=== PATIENT | female | born 1940 | race Caucasian/White ===

== ENCOUNTER 2016-08-08 08:20 | Emergency (ER) | payer MEDICARE, MEDICAID ==
[2016-08-08] MEDS ORDERED: ACETAMINOPHEN 325 MG TABLET PO ONE (09:03)
--- NOTE | 2016-08-08 09:06 | ER Document Report ---
ED Flu Like - General Mode of Arrival: Ambulatory Information source: Patient TRAVEL OUTSIDE OF THE [place] IN LAST 30 DAYS: No - HPI Patient complains to provider of: Flu Symptoms Onset: This morning Timing/Duration: Sudden Associated symptoms: Chills, Productive cough, Fever, Rhinnorhea <CINDY CORRAL - Last Filed: 08/08/16 09:22> <SÁNCHEZ RICHTER - Last Filed: 08/08/16 10:34> - General Chief Complaint: Flu Symptoms Stated Complaint: HEAD PAIN Notes: Patient is a 75-year-old female presenting to the emergency department concerned of flulike symptoms onset upon waking up this morning. Patient states that she has a productive cough, but she does not know what it looks like. Patient also complains of being cold and not being able to warm up. Patient cannot remember if she got the flu shot or not, but states that she has been around her brother and his 2 sons who have been sick. Patient believes that she woke up with fever, but did not check her temp until here in the ER. (CINDY CORRAL) - Related Data Allergies/Adverse Reactions: propoxyphene HCl [From Darvon] Adverse Reaction (Verified 08/08/16 08:24) Confusion Bee Stings Allergy (Uncoded 08/08/16 08:24) Past Medical History - General Information source: Patient - Social History Smoking Status: Never Smoker Chew tobacco use (# tins/day): No Frequency of alcohol use: None Drug Abuse: None Family History: None, Reviewed & Not Pertinent Patient has suicidal ideation: No Patient has homicidal ideation: No - Past Medical History Cardiac Medical History: Reports: Hx Hypercholesterolemia, Hx Hypertension Pulmonary Medical History: Reports: Hx Pneumonia Renal/ Medical History: Reports: Hx Kidney Stones - Seen on CT scan in the past GI Medical History: Reports: Hx Gastroesophageal Reflux Disease, Hx Hiatal Hernia Musculoskeltal Medical History: Reports Hx Arthritis - all over Psychiatric Medical History: Reports: Hx Depression Past Surgical History: Reports: Hx Bowel Surgery - A gastric stent to repair hiatal hernia, Hx Gynecologic Surgery - BTL, Hx Tubal Ligation - Immunizations Hx Diphtheria, Pertussis, Tetanus Vaccination: Yes Hx Pneumococcal Vaccination: 01/31/15 <CINDY CORRAL - Last Filed: 08/08/16 09:22> Review of Systems - Review of Systems Constitutional: See HPI, Chills, Fever EENT: See HPI, Nose congestion Cardiovascular: No symptoms reported Respiratory: See HPI, Cough - Productive Gastrointestinal: No symptoms reported Genitourinary: No symptoms reported Female Genitourinary: No symptoms reported Musculoskeletal: No symptoms reported Skin: No symptoms reported Hematologic/Lymphatic: No symptoms reported Neurological/Psychological: No symptoms reported -: Yes All other systems reviewed and negative <CINDY CORRAL - Last Filed: 08/08/16 09:22> Physical Exam - Vital signs Interpretation: Hypertensive, Tachycardic, Tachypneic - General General appearance: Alert - HEENT Head: Normocephalic, Atraumatic Eyes: Normal Pupils: PERRL Tympanic membrane: Normal Nasal: Clear rhinorrhea Mouth/Lips: Normal - Respiratory Respiratory status: No respiratory distress, Tachypnea Chest status: Nontender Breath sounds: Productive cough, Rhonchi. No: Wheezing - Cardiovascular Rhythm: Tachycardia Heart sounds: Normal auscultation Murmur: No - Abdominal Inspection: Normal Distension: No distension Bowel sounds: Normal Tenderness: Nontender Organomegaly: No organomegaly - Back Back: Normal, Nontender - Extremities General upper extremity: Normal inspection, Nontender, Normal color, Normal ROM , Normal temperature General lower extremity: Normal inspection, Nontender, Normal color, Normal ROM , Normal temperature, Normal weight bearing - Neurological Neuro grossly intact: Yes Cognition: Normal [place] Coma Scale Eye Opening: Spontaneous Yadi Coma Scale Verbal: Oriented [place] Coma Scale Motor: Obeys Commands Yadi Coma Scale Total: 15 Speech: Normal - Psychological Associated symptoms: Normal affect, Normal mood - Skin Skin Temperature: Warm Skin Moisture: Dry Skin Color: Normal <CINDY CORRAL - Last Filed: 08/08/16 09:22> Course - Laboratory Result Diagrams: 08/08/16 09:50 08/08/16 09:50 - Diagnostic Test Radiology reviewed: Image reviewed, Reports reviewed - Chest x-ray does not show an acute process. <SÁNCHEZ RICHTER - Last Filed: 08/08/16 10:34> - Vital Signs Vital signs: Temp Pulse Resp BP Pulse Ox 98.6 F 89 24 H 121/59 L 97 08/08/16 09:59 08/08/16 09:59 08/08/16 08:28 08/08/16 09:59 08/08/16 08:28 (CINDY CORRAL) (SÁNCHEZ RICHTER) - Laboratory Laboratory results interpreted by me: 08/08/16 09:50 Seg Neutrophils % 81.6 H Lymphocytes % 7.4 L Absolute Lymphocytes 0.4 L Discharge <CINDY CORRAL - Last Filed: 08/08/16 09:22> <SÁNCHEZ RICHTER - Last Filed: 08/08/16 10:34> - Discharge Clinical Impression: Viral upper respiratory tract infection with cough, Viral syndrome Condition: Stable Disposition: HOME, SELF-CARE Additional Instructions: Upper Respiratory Illness: You have a viral infection of the respiratory passages -- a "cold." This common infection causes nasal congestion, drainage, and often sore throat and cough. It is caused by a virus and is highly contagious. The disease usually lasts a week or more, though the worst symptoms are usually over in 3 or 4 days. There is no "cure" for the viral infection -- it must run its course. If there is a complication, such as bacterial infection in the nose, sinuses, middle ear, or bronchial tubes, antibiotics may be required, but antibiotics won 't affect the virus. If you smoke, you should STOP!! Drink plenty of fluids. A humidifier may help. An expectorant medication or decongestant may make you more comfortable. Use acetaminophen or ibuprofen for fever or aches. See the doctor if fever persists over two or three days, if there is any significant worsening of your symptoms, or if you simply fail to improve as expected. Viral Syndrome: The physician has diagnosed a viral infection. Viruses not only cause "colds," but can cause many different symptoms including generalized aching, fever, headache, cough, diarrhea, nausea, vomiting, and fatigue. The treatment, for the most part, is simply relief of symptoms. This means that antibiotics are usually not given. Rest, fluids, pain medications and, occasionally, medication for the specific symptoms that are most bothersome will be prescribed. Use good handwashing to avoid passing the virus to others. Shared toys should be cleaned with disinfectant. Clean the toilets, sinks, and counter surfaces in bathrooms. Launder clothing in hot water. Contact the physician if you develop any new or unusual symptoms such as severe headache, stiff neck, high fever, chest pain, productive cough, or shortness of breath. You should be rechecked if you don't see marked improvement within seven to 10 days. DRINK PLENTY OF FLUIDS. REST. TRY ROBITUSSIN-DM FOR COUGH CONTROL. TAKE TYLENOL AND IBUPROFEN FOR CHILLS, FEVER, AND PAIN. FOLLOW UP WITH YOUR DOCTOR IF NOT IMPROVING. Forms: Return to Work Scribe Attestation: 08/08/16 10:34 I personally performed the services described in the documentation, reviewed and edited the documentation which was dictated to the scribe in my presence, and it accurately records my words and actions. (SÁNCHEZ RICHTER) Scribe Documentation <CINDY CORRAL - Last Filed: 08/08/16 09:22> <SÁNCHEZ RICHTER - Last Filed: 08/08/16 10:34> - Scribe Written by Scribe:: SÁNCHEZ RICHTER MD, SCRIBE 08/08/16 0917 Acting as scribe for: Dr. Richter (CINDY CORRAL) (SÁNCHEZ RICHTER)
[2016-08-08 10:16] LABS: ABSOLUTE LYMPHOCYTES (AUTO) 0.4 10^3/uL (0.5-4.7); ABSOLUTE MONOCYTES (AUTO) 0.6 10^3/uL (0.1-1.4); ABSOLUTE NEUT (AUTO) 4.8 10^3/uL (1.7-8.2); BASOPHILS % (AUTO) 0.3 % (0-2); EOSINOPHILS % (AUTO) 0.3 % (0-6); HEMATOCRIT 36.3 % (36.0-47.0); HEMOGLOBIN 12.6 g/dL (12.0-15.5); HGB HCT DIFFERENCE 1.5; LYMPHOCYTES % (AUTO) 7.4 % (13-45); MEAN CORPUSCULAR HEMOGLOBIN 31.6 pg (27.0-33.4); MEAN CORPUSCULAR HGB CONC 34.6 g/dL (32.0-36.0); MEAN CORPUSCULAR VOLUME 91 fl (80-97); MONOCYTES % (AUTO) 10.4 % (3-13); RED BLOOD COUNT 3.98 10^6/uL (3.72-5.28); RED CELL DISTRIBUTION WIDTH 13.5 % (11.5-14.0); SEGMENTED NEUTROPHILS % (AUTO) 81.6 % (42-78); WHITE BLOOD COUNT 5.9 10^3/uL (4.0-10.5)
[2016-08-08 10:34] LABS: ALANINE AMINOTRANSFERASE 23 U/L (9-52); ALBUMIN 4.2 g/dL (3.5-5.0); ALKALINE PHOSPHATASE 62 U/L (38-126); ANION GAP 12 (5-19); ASPARTATE AMINO TRANSFERASE 18 U/L (14-36); BILIRUBIN,TOTAL 0.7 mg/dL (0.2-1.3); BLOOD UREA NITROGEN 12 mg/dL (7-20); CALCIUM 9.2 mg/dL (8.4-10.2); CARBON DIOXIDE 23 mmol/L (22-30); CHLORIDE 105 mmol/L (98-107); CREATININE RESULT 0.61 mg/dL (0.52-1.25); GLUCOSE 118 mg/dL (75-110); POTASSIUM 3.9 mmol/L (3.6-5.0); TOTAL PROTEIN 6.3 g/dL (6.3-8.2)
[2016-08-08 10:45] VITALS: BP 120/61
== END 2016-08-08 10:44 | disposition home or self-care (01) ==
LOC: ER 08:20
DX: J06.9 Acute upper respiratory infection, unspecified (principal); B34.9 Viral infection, unspecified; R51 Headache; R05 Cough
CPT/HCPCS: 99283; 36415; 85025; 80053; 87804; 71020; A9270

== ENCOUNTER → 2016-08-14 | Outpatient (CLI) | payer MEDICARE, MEDICAID | LOC: RAD 16:27 | PROVIDERS: ATTEND Family Medicine | DX: R05 Cough (principal) | CPT/HCPCS: 71020 ==

== ENCOUNTER 2016-10-12 15:33 | Emergency (ER) | payer MEDICARE, MEDICAID ==
--- NOTE | 2016-10-12 16:03 | EKG REPORT ---
SEVERITY:- NORMAL ECG - SINUS RHYTHM : Confirmed by: Angelica Burgos MD 12-Oct-2016 16:02:28
[2016-10-12 16:14] LABS: ABSOLUTE EOSINOPHILS # (AUTO) 0.2 10^3/uL (0.0-0.6); ABSOLUTE LYMPHOCYTES (AUTO) 2.1 10^3/uL (0.5-4.7); ABSOLUTE MONOCYTES (AUTO) 0.5 10^3/uL (0.1-1.4); ABSOLUTE NEUT (AUTO) 4.1 10^3/uL (1.7-8.2); BASOPHILS % (AUTO) 0.6 % (0-2); EOSINOPHILS % (AUTO) 2.3 % (0-6); HEMATOCRIT 39.4 % (36.0-47.0); HEMOGLOBIN 13.6 g/dL (12.0-15.5); HGB HCT DIFFERENCE 1.4; LYMPHOCYTES % (AUTO) 30.2 % (13-45); MEAN CORPUSCULAR HEMOGLOBIN 32.1 pg (27.0-33.4); MEAN CORPUSCULAR HGB CONC 34.5 g/dL (32.0-36.0); MEAN CORPUSCULAR VOLUME 93 fl (80-97); MONOCYTES % (AUTO) 7.5 % (3-13); RED BLOOD COUNT 4.23 10^6/uL (3.72-5.28); RED CELL DISTRIBUTION WIDTH 13.3 % (11.5-14.0); SEGMENTED NEUTROPHILS % (AUTO) 59.4 % (42-78); WHITE BLOOD COUNT 6.9 10^3/uL (4.0-10.5)
--- NOTE | 2016-10-12 16:16 | ER Document Report ---
ED Syncope and Near Syncope - General Stated Complaint: SYNCOPE Time Seen by Provider: 10/12/16 15:48 Mode of Arrival: Medic Information source: Patient Notes: 75-year-old female presents to ED for [place]ope at the mall. She states she was feeling kind of like her head was in a blanket, so she and her sister decided to go to the mall and shop. While at the mall, she became dizzy and her sister called caught her and she did not fall. TRAVEL OUTSIDE OF THE [place] IN LAST 30 DAYS: No - HPI Patient complains to provider of: Nearly fainting Episode witnessed (by whom): Yes - sister When did episodes begin: while shopping at the mall When was most recent episode: today Symptoms prior to episode: Dizziness, Lightheaded, Visual disturbance Quality of pain: Achy Context: Almost passed out Injury location: None Current symptoms: None/feels back to normal D-stick result: 130 Similar symptoms previously: Yes Recently seen / treated by doctor: Yes - Related Data Allergies/Adverse Reactions: propoxyphene HCl [From Darvon] Adverse Reaction (Verified 08/08/16 08:24) Confusion Bee Stings Allergy (Uncoded 08/08/16 08:24) Past Medical History - General Information source: Patient - Social History Smoking Status: Never Smoker Cigarette use (# per day): No Chew tobacco use (# tins/day): No Smoking Education Provided: No Frequency of alcohol use: None Drug Abuse: None Lives with: Family Family History: None, Reviewed & Not Pertinent - Past Medical History Cardiac Medical History: Reports: Hx Hypercholesterolemia, Hx Hypertension Pulmonary Medical History: Reports: Hx Pneumonia EENT Medical History: Reports: None Neurological Medical History: Reports: None Endocrine Medical History: Reports: None Renal/ Medical History: Reports: Hx Kidney Stones - Seen on CT scan in the past Malignancy Medical History: Reports: None GI Medical History: Reports: Hx Gastroesophageal Reflux Disease, Hx Hiatal Hernia Musculoskeltal Medical History: Reports Hx Arthritis - all over Skin Medical History: Reports None Psychiatric Medical History: Reports: Hx Depression Traumatic Medical History: Reports: None Infectious Medical History: Reports: None Past Surgical History: Reports: Hx Bowel Surgery - A gastric stent to repair hiatal hernia, Hx Gynecologic Surgery - BTL, Hx Tubal Ligation - Immunizations Hx Diphtheria, Pertussis, Tetanus Vaccination: Yes Hx Pneumococcal Vaccination: 01/31/15 Review of Systems - Review of Systems Constitutional: No symptoms reported EENT: No symptoms reported Cardiovascular: Dizziness, Lightheaded Respiratory: No symptoms reported Gastrointestinal: No symptoms reported Genitourinary: No symptoms reported Female Genitourinary: No symptoms reported Musculoskeletal: No symptoms reported Skin: No symptoms reported Hematologic/Lymphatic: No symptoms reported Neurological/Psychological: No symptoms reported -: Yes All other systems reviewed and negative Physical Exam - Vital signs Vitals: Temp Pulse Resp BP Pulse Ox 98.2 F 73 16 149/76 H 97 10/12/16 15:40 10/12/16 15:40 10/12/16 15:40 10/12/16 15:40 10/12/16 15:40 Interpretation: Normal - General General appearance: Appears well, Alert - HEENT Head: Normocephalic, Atraumatic Eyes: Normal Pupils: PERRL - Respiratory Respiratory status: No respiratory distress Chest status: Nontender Breath sounds: Normal Chest palpation: Normal - Cardiovascular Rhythm: Regular Heart sounds: Normal auscultation Murmur: No - Abdominal Inspection: Normal Distension: No distension Bowel sounds: Normal Tenderness: Nontender Organomegaly: No organomegaly - Back Back: Normal, Nontender - Extremities General upper extremity: Normal inspection, Nontender, Normal color, Normal ROM , Normal temperature General lower extremity: Normal inspection, Nontender, Normal color, Normal ROM , Normal temperature, Normal weight bearing. No: Milla's sign - Neurological Neuro grossly intact: Yes Cognition: Normal Orientation: AAOx4 [place] Coma Scale Eye Opening: Spontaneous [place]ott[place] Coma Scale Verbal: Oriented [place] Coma Scale Motor: Obeys Commands Y[place] Coma Scale Total: 15 Speech: Normal Motor strength normal: LUE, RUE, LLE, RLE Sensory: Normal - Psychological Associated symptoms: Normal affect, Normal mood - Skin Skin Temperature: Warm Skin Moisture: Dry Skin Color: Normal Course - Re-evaluation Re-evalutation: 10/12/16 19:[address] with patient and written reports given to patient to follow-up with her primary doctor. Patient instructed to call her primary doctor on Friday and schedule a follow-up appointment as soon as possible. - Vital Signs Vital signs: Temp Pulse Resp BP Pulse Ox 98.2 F 75 22 H 154/72 H 100 10/12/16 15:40 03/18/17 17:08 10/12/16 18:15 10/12/16 18:15 10/12/16 18:15 - Laboratory Result Diagrams: 10/12/16 15:45 10/12/16 15:45 - Diagnostic Test Radiology reviewed: Image reviewed, Reports reviewed Discharge - Discharge Clinical Impression: Syncope Qualifiers: Syncope type: unspecified Qualified Code(s): R55 - Syncope and collapse Headache Qualifiers: Headache type: unspecified Headache chronicity pattern: unspecified pattern Intractability: not intractable Qualified Code(s): R51 - Headache Hypertension Qualifiers: Hypertension type: essential hypertension Qualified Code(s): I10 - Essential ( primary) hypertension Condition: Stable Disposition: HOME, SELF-CARE Additional Instructions: SYNCOPAL EPISODE: Syncope (fainting or near-fainting) can occur from many different health problems. Or it can be a simple fainting spell requiring no treatment. It is safe for you to go home, but further evaluation will likely be necessary. Your work-up may include tests for internal bleeding, heart disease, medication problems, or near-strokes. Tests are not always required, however, depending on the nature of your problem. The warning signs of an impending faint include: dizziness, lightheadedness , nausea, hot flashes, tingling, and weakness. If this happens, lay down and put your feet up, then wait until all of these symptoms have passed before standing up again. If these episodes become recurrent, or if you develop chest pain, heart palpitations, mental confusion, blurred vision, or headache, then you should call the physician, or go to the emergency room. HEADACHE: The physician does not feel that the headache you are experiencing has a serious underlying cause. Most headaches are due to emotional stress, with resultant muscle tension (tension headache). Occasionally, headaches are secondary to changes in the blood vessels of the scalp (vascular headache and migraine headache). Sometimes, a headache is the first symptom of another developing illness, such as a viral infection. You have no evidence of stroke, bleeding, meningitis, or other serious cause of your headache. The treatment of headaches varies with the severity and cause of the pain. Not all headaches need pain shots. In fact, there is evidence that using narcotics for headaches may make them worse in the long run. The physician will determine the therapy that's in your best interest. If you develop a fever, if the headache is different from any you've previously experienced, or if the headache progressively worsens, then call your physician at once or go to the emergency room. ANTINAUSEA MEDICATION: You have been given a medication to suppress nausea and vomiting. This type of medication can be given as a shot, pill, or suppository. It will usually last for many hours. Pills and shots usually last six to eight hours, suppositories last about 12 hours. For the typical illness, only one or two doses of the medication may be necessary. Mild lightheadedness may occur. This type of medicine can cause drowsiness. Do not drive or operate dangerous machinery while under its influence. Do not mix with alcohol. See your doctor at once if you have muscle spasms or tightness, or uncontrollable motions (particularly of the neck, mouth, or jaw). Persistent vomiting or severe lightheadedness should also be evaluated by the physician. NORMAL EXAM AND WORKUP: At this time, your examination and workup show no significant abnormality. No significant abnormal physical findings were noted. All laboratory, EKG, and imaging (x-ray, CT scans, ultrasound) studies that were ordered show no significant abnormality. Although your examination and all studies that were ordered showed no significant abnormal finding, there are no examinations and no studies that are 100% accurate. There is always the possibility that some abnormality could exist and not be detected with physical examination or within the limits and capabilities of laboratory and other studies. You should return or follow up as you were instructed on your visit today for further evaluation if your symptoms do not resolve. FOLLOW-UP CARE: If you have been referred to a physician for follow-up care, call the physician s office for an appointment as you were instructed or within the next two days. If you experience worsening or a significant change in your symptoms, notify the physician immediately or return to the Emergency Department at any time for re-evaluation. Prescriptions: Ondansetron [Zofran Odt 4 mg Tablet] 1 tab PO Q6H #15 tab.rapdis Forms: Elevated Blood Pressure Referrals: RAMONE CRAWFORD MD [Primary Care Provider] - 10/14/16
[2016-10-12 16:33] LABS: ALANINE AMINOTRANSFERASE 22 U/L (9-52); ALBUMIN 4.1 g/dL (3.5-5.0); ALKALINE PHOSPHATASE 66 U/L (38-126); ANION GAP 13 (5-19); ASPARTATE AMINO TRANSFERASE 22 U/L (14-36); BILIRUBIN,TOTAL 0.5 mg/dL (0.2-1.3); BLOOD UREA NITROGEN 18 mg/dL (7-20); CALCIUM 9.7 mg/dL (8.4-10.2); CARBON DIOXIDE 23 mmol/L (22-30); CHLORIDE 107 mmol/L (98-107); CREATINE KINASE 47 U/L (30-135); CREATININE RESULT 0.91 mg/dL (0.52-1.25); GLUCOSE 107 mg/dL (75-110); POTASSIUM 4.8 mmol/L (3.6-5.0); SODIUM 143.4 mmol/L (137-145)
[2016-10-12 16:57] LABS: CREATINE KINASE MB 0.54 ng/mL (<4.55)
[2016-10-12 16:58] LABS: TROPONIN I < 0.012 ng/mL
[2016-10-12 17:31] LABS: APPEARANCE,URINE CLEAR; BILIRUBIN,URINE NEGATIVE (NEGATIVE); GLUCOSE, URINE NEGATIVE (NEGATIVE); KETONES,URINE NEGATIVE (NEGATIVE); LEUKOCYTE ESTERASE,URINE NEGATIVE (NEGATIVE); NITRITE,URINE NEGATIVE (NEGATIVE); PROTEIN,URINE NEGATIVE (NEGATIVE); URINE SPECIFIC GRAVITY 1.011; UROBILINOGEN,URINE NEGATIVE mg/dL (<2.0)
[2016-10-12 18:30] VITALS: BP 154/72
== END 2016-10-12 18:40 | disposition home or self-care (01) ==
LOC: ER 15:33
DX: R55 Syncope and collapse (principal); R51 Headache; I10 Essential (primary) hypertension
CPT/HCPCS: 36415; 70450; 80053; 81001; 82550; 82553; 84484; 85025; 93005; 93010; 99284

== ENCOUNTER → 2017-01-13 | Outpatient (CLI) | payer MEDICARE ==
--- NOTE | 2017-01-13 12:41 | RADIOLOGY REPORT (SQ) ---
EXAM DESCRIPTION: KUB/ABDOMEN (SINGLE VIEW) COMPLETED DATE/TIME: 01/13/2017 11:47 am REASON FOR STUDY: CALCULUS OF KIDNEY N20.0 CALCULUS OF KIDNEY COMPARISON: None. NUMBER OF VIEWS: One view. TECHNIQUE: Supine radiographic image of the abdomen acquired. LIMITATIONS: None. FINDINGS: BOWEL GAS PATTERN: Normal bowel gas pattern. No dilated loops. CALCIFICATIONS: Calcifications overlie the left kidney. No ureteral calculus is appreciated. SOFT TISSUES: No gross mass or suggestion of organomegaly. HARDWARE: Anchors are present in the mid abdomen suggesting ventral hernia repair. BONES: There is scoliosis in the lower lumbar spine. OTHER: No other significant finding. IMPRESSION: NO RADIOGRAPHIC EVIDENCE FOR ACUTE ABDOMINAL DISEASE. TECHNICAL DOCUMENTATION: JOB ID: [id number] [employer]- All Rights Reserved
== END ==
LOC: RAD 11:28
PROVIDERS: ATTEND Urology
DX: N20.0 Calculus of kidney (principal)
CPT/HCPCS: 74000

== ENCOUNTER → 2017-01-15 | Outpatient (CLI) | payer MEDICAID, MEDICARE ==
--- NOTE | 2017-01-15 11:42 | RADIOLOGY REPORT (SQ) ---
EXAM DESCRIPTION: CT ABD/PELVIS COMBO COMPLETED DATE/TIME: 01/15/2017 8:56 am REASON FOR STUDY: MICROSCOPIC HEMATURIA R31.29 OTHER MICROSCOPIC HEMATURIA COMPARISON: None. TECHNIQUE: CT scan of the abdomen and pelvis performed with and without intravenous contrast, and wi thout oral contrast. Contrasted imaging performed helical scanning technique and dynamic intravenous contrast injection. Images reviewed with lung, soft tissue, and bone windows. Reconstructed coronal a nd sagittal MPR images reviewed. Delayed images for evaluation of the urinary system also acquired. A ll images stored on PACS. All CT scanners at this facility use dose modulation, iterative reconstruction, and/or weight based d osing when appropriate to reduce radiation dose to as low as reasonably achievable (ALARA). [facility]: Dose Right [facility]: CareDose [facility]: Dose Right [facility]: Teradose 4D [facility]: Pharmapod CONTRAST TYPE AND DOSE: contrast/concentration: Isovue 370.00 mg/ml; Total Contrast Delivered: 63.0 ml; Total Saline Delivered: 65.0 ml RENAL FUNCTION: Creatinine 0.6 RADIATION DOSE: Up-to-date CT equipment and radiation dose reduction techniques were employed. CTDIv ol: 9.0 mGy. DLP: 1389 mGy-cm. . LIMITATIONS: None. FINDINGS: NON-CONTRASTED IMAGING: In the left mid pole kidney, a curvilinear calcification is presen t, best shown on axial precontrast image 35. This measures 7 mm in size and likely represents a smal l intrarenal nonobstructive stone. POST-CONTRASTED IMAGING: LOWER CHEST: No significant findings. No nodules or infiltrates. Moderate size hiatal hernia LIVER: Normal size. No masses or dilated ducts. Incidental finding of a subcentimeter hemangioma pos terior right lobe sub- diaphragmatic surface axial postcontrast image 14 of doubtful clinical signifi cance SPLEEN: Normal size. No focal lesions. PANCREAS: No masses. No significant calcifications. No adjacent inflammation or peripancreatic fluid collections. Pancreatic duct not dilated. GALLBLADDER: No identified stones by CT criteria. No inflammatory changes to suggest cholecystitis. ADRENAL GLANDS: No significant masses or asymmetry. RIGHT KIDNEY AND URETER: No solid masses. Multiple less than 5 mm upper pole cortical cysts are pres ent No significant calcifications. No hydronephrosis or hydroureter. LEFT KIDNEY AND URETER: No solid masses. Multiple less than 5 mm left upper pole cortical cyst, 1 cm left upper pole cortical cyst, 2 cm left midpole cortical cyst. 7 mm calcification in the left mid pole kidney likely an intrarenal nonobstructive stone. No left ureteral calculi are identified. No hydronephrosis or hydroureter. AORTA AND VESSELS: No aneurysm or dissection. Moderate atherosclerotic calcification at the origin o f the celiac and superior mesenteric arteries. RETROPERITONEUM: No retroperitoneal adenopathy, hemorrhage or masses. BOWEL AND PERITONEAL CAVITY: No masses or inflammatory changes. No free fluid or peritoneal masses. Colonic diverticulosis without CT signs of acute diverticulitis APPENDIX: Normal. PELVIS: No mass or free fluid. Normal bladder. Normal size postmenopausal female pelvic organs ABDOMINAL WALL: Post umbilical hernia repair with intact mesh. Small fat containing left inguinal he rnia. BONES: No significant or acute findings. OTHER: No other significant finding. IMPRESSION: 7 mm left midpole intrarenal nonobstructive stone. TECHNICAL DOCUMENTATION: JOB ID: [id number] Quality ID # [id number]: Final reports with documentation of one or more dose reduction techniques (e.g., Au tomated exposure control, adjustment of the mA and/or kV according to patient size, use of iterative reconstruction technique) 2010 [employer]- All Rights Reserved
== END ==
LOC: RAD 08:14
PROVIDERS: ATTEND Urology
DX: R31.29 Other microscopic hematuria (principal)
CPT/HCPCS: 74178; 82565

== ENCOUNTER → 2017-02-19 | Outpatient (CLI) | payer MEDICAID, MEDICARE ==
--- NOTE | 2017-02-19 15:50 | WOMENS IMAGING REPORT ---
EXAM DESCRIPTION: 3D SCREENING MAMMO BILAT COMPLETED DATE/TIME: 02/19/2017 3:20 pm REASON FOR STUDY: ROUTINE SCREENING; Z12.31 Z12.31 ENCNTR SCREEN MAMMOGRAM FOR MALIGNANT NEOPLASM O F ROMIE COMPARISON: 02/19/2016 and 01/24/2015. TECHNIQUE: Standard craniocaudal and mediolateral oblique views of each breast recorded using digita l acquisition and breast tomosynthesis. LIMITATIONS: None. FINDINGS: No masses, calcifications or architectural distortion. No areas of suspicion. Read with the assistance of CAD. .[facility] - R2 Cenova Version 1.3 .[facility] - R2 Cenova Version 1.3 .[facility] - R2 Cenova Version 2.4 .[facility] [place] - R2 Cenova Version 2.4 .[facility] - R2 Support Assistant Version 9.2 IMPRESSION: NORMAL MAMMOGRAM. BIRADS 1. BREAST DENSITY: a. The breasts are almost entirely fatty. BIRAD: 1 NEGATIVE RECOMMENDATION: ROUTINE SCREENING COMMENT: The patient has been notified of the results by letter per MQSA requirements. Additional no tification policies are in place for contacting patient with suspicious or incomplete findings. Quality ID #225: The [employer] recommends an annual screening mammogram for women aged 40 years or over. This facility utilizes a reminder system to ensure that all patients receive reminder letters, and/or direct phone calls for appointments. This includes reminders for routine scr eening mammograms, diagnostic mammograms, or other Breast Imaging Interventions when appropriate. Th is patient will be placed in the appropriate reminder system. The [employer] (ACR) has developed recommendations for screening MRI of the breast s in certain patient populations, to be used in conjunction with mammography. Breast MRI surveillanc e may be appropriate for women with more than 20% lifetime risk of developing breast cancer as deter mined by genetic testing, significant family history of the disease, or history of mantle radiation f or Hodgkins Disease. ACR Practice Guidelines 2008. DBT Technology DBT is a type of tomographic mammography. With conventional mammography, overlapping breast tissue ma y make lesions difficult to detect, even with good compression. DBT uses an x-ray tube that rotates a round the breast, taking images at different angles. These images are then combined to create thin sl ices of the breast that the radiologist can view as a 3D reconstruction. The BUILD unit can perform full-field digital mammograms (2D imaging); or DBT (3D imaging); or both, in a combination mode that quickly performs both the mammogram and the tomosynthesis scan while the breast is still compressed. PQRS 6045F: Fluoroscopic imaging is not utilized for breast tomosynthesis. TECHNICAL DOCUMENTATION: FINDING NUMBER: (1) ASSESSMENT: (1) JOB ID: [id number] [employer]- All Rights Reserved
== END ==
LOC: WI 14:23
PROVIDERS: ATTEND Family Medicine
DX: Z12.31 Encounter for screening mammogram for malignant neoplasm of breast (principal)
CPT/HCPCS: 77063; G0202; 77067

== ENCOUNTER 2017-03-19 09:23 | Emergency (ER) | payer MEDICARE ==
[2017-03-19] MEDS ORDERED: BUTALB/ACETAMINOPHEN/CAFFEINE 1 TAB EACH PO ONE (09:48)
--- NOTE | 2017-03-19 10:28 | RADIOLOGY REPORT (SQ) ---
EXAM DESCRIPTION: CT HEAD WITHOUT COMPLETED DATE/TIME: 03/19/2017 10:11 am REASON FOR STUDY: severe frontal romero COMPARISON: 10/12/2016 TECHNIQUE: Axial images acquired through the brain without intravenous contrast. Images reviewed wi th bone, brain and subdural windows. Images stored on PACS. All CT scanners at this facility use dose modulation, iterative reconstruction, and/or weight based d osing when appropriate to reduce radiation dose to as low as reasonably achievable (ALARA). [facility]: Dose Right [facility]: CareDose [facility]: Dose Right [facility]: Teradose 4D [facility]: Smart [employer] RADIATION DOSE: Up-to-date CT equipment and radiation dose reduction techniques were employed. CTDIv ol: 64.6 mGy. DLP: 1034 mGy-cm. mGy. LIMITATIONS: None. FINDINGS: VENTRICLES: Normal size and contour. CEREBRUM: No masses. No hemorrhage. No midline shift. Normal bocanegra/white matter differentiation. N o evidence for acute infarction. CEREBELLUM: No masses. No hemorrhage. No alteration of density. No evidence for acute infarction. EXTRAAXIAL SPACES: No fluid collections. No masses. ORBITS AND GLOBE: No intra- or extraconal masses. Normal contour of globe without masses. CALVARIUM: No fracture. PARANASAL SINUSES: No fluid or mucosal thickening. SOFT TISSUES: No mass or hematoma. OTHER: No other significant finding. IMPRESSION: NORMAL BRAIN CT WITHOUT CONTRAST. TECHNICAL DOCUMENTATION: JOB ID: [id number] Quality ID # [id number]: Final reports with documentation of one or more dose reduction techniques (e.g., Au tomated exposure control, adjustment of the mA and/or kV according to patient size, use of iterative reconstruction technique) 2010 [employer]- All Rights Reserved
[2017-03-19 10:48] LABS: ABSOLUTE EOSINOPHILS # (AUTO) 0.1 10^3/uL (0.0-0.6); ABSOLUTE LYMPHOCYTES (AUTO) 1.7 10^3/uL (0.5-4.7); ABSOLUTE MONOCYTES (AUTO) 0.4 10^3/uL (0.1-1.4); BASOPHILS % (AUTO) 0.5 % (0-2); EOSINOPHILS % (AUTO) 2.7 % (0-6); HEMATOCRIT 37.6 % (36.0-47.0); HEMOGLOBIN 13.2 g/dL (12.0-15.5); MEAN CORPUSCULAR HEMOGLOBIN 32.9 pg (27.0-33.4); MEAN CORPUSCULAR HGB CONC 35.1 g/dL (32.0-36.0); MEAN CORPUSCULAR VOLUME 94 fl (80-97); MONOCYTES % (AUTO) 7.4 % (3-13); RED CELL DISTRIBUTION WIDTH 13.2 % (11.5-14.0); SEGMENTED NEUTROPHILS % (AUTO) 57.4 % (42-78); WHITE BLOOD COUNT 5.2 10^3/uL (4.0-10.5)
[2017-03-19 10:59] LABS: APPEARANCE,URINE CLEAR; BILIRUBIN,URINE NEGATIVE (NEGATIVE); GLUCOSE, URINE NEGATIVE (NEGATIVE); KETONES,URINE NEGATIVE (NEGATIVE); LEUKOCYTE ESTERASE,URINE NEGATIVE (NEGATIVE); NITRITE,URINE NEGATIVE (NEGATIVE); PROTEIN,URINE NEGATIVE (NEGATIVE); URINE SPECIFIC GRAVITY 1.017; UROBILINOGEN,URINE NEGATIVE mg/dL (<2.0)
[2017-03-19 11:21] LABS: ALANINE AMINOTRANSFERASE 26 U/L (9-52); ALBUMIN 4.4 g/dL (3.5-5.0); ALKALINE PHOSPHATASE 58 U/L (38-126); ANION GAP 10 (5-19); ASPARTATE AMINO TRANSFERASE 20 U/L (14-36); BILIRUBIN,DIRECT 0.3 mg/dL (0.0-0.4); BILIRUBIN,TOTAL 0.7 mg/dL (0.2-1.3); BLOOD UREA NITROGEN 23 mg/dL (7-20); CALCIUM 9.9 mg/dL (8.4-10.2); CARBON DIOXIDE 24 mmol/L (22-30); CHLORIDE 105 mmol/L (98-107); CREATININE RESULT 0.69 mg/dL (0.52-1.25); GLUCOSE 110 mg/dL (75-110); POTASSIUM 4.4 mmol/L (3.6-5.0); SODIUM 139.2 mmol/L (137-145)
[2017-03-19 11:32] VITALS: BP 133/62
--- NOTE | 2017-03-19 11:32 | ER Document Report ---
ED Headache - General Chief Complaint: Headache Stated Complaint: BLOOD PRESSURE PROBLEM/HEADACHE Time Seen by Provider: 03/19/17 09:47 Notes: Patient presents with 1 day of a gradual onset headache. It is gradually progressed since she woke up. It is bilateral frontal. It is severe and throbbing. It does not radiate. Nothing makes it better or worse. She denies any cough cold or sinus congestion. No recent trauma or fevers. No rashes. No known tick bites. TRAVEL OUTSIDE OF THE [place] IN LAST 30 DAYS: No - Related Data Allergies/Adverse Reactions: propoxyphene HCl [From Darvon] Adverse Reaction (Verified 08/08/16 08:24) Confusion Bee Stings Allergy (Uncoded 08/08/16 08:24) Past Medical History - General Information source: Patient - Social History Smoking Status: Never Smoker Chew tobacco use (# tins/day): No Frequency of alcohol use: None Drug Abuse: None Family History: None, Reviewed & Not Pertinent - Past Medical History Cardiac Medical History: Reports: Hx Hypercholesterolemia, Hx Hypertension Denies: Hx Coronary Artery Disease, Hx Heart Attack Pulmonary Medical History: Reports: Hx Pneumonia Denies: Hx Asthma, Hx Bronchitis, Hx COPD Neurological Medical History: Denies: Hx Cerebrovascular Accident, Hx Seizures Renal/ Medical History: Reports: Hx Kidney Stones - Seen on CT scan in the past. Denies: Hx Peritoneal Dialysis GI Medical History: Reports: Hx Gastroesophageal Reflux Disease, Hx Hiatal Hernia Musculoskeltal Medical History: Reports Hx Arthritis - all over Psychiatric Medical History: Reports: Hx Depression Past Surgical History: Reports: Hx Bowel Surgery - A gastric stent to repair hiatal hernia, Hx Gynecologic Surgery - BTL, Hx Tubal Ligation. Denies: Hx Hysterectomy, Hx Pacemaker - Immunizations Hx Diphtheria, Pertussis, Tetanus Vaccination: Yes Hx Pneumococcal Vaccination: 01/31/15 Review of Systems - Review of Systems Constitutional: denies: Chills, Fever Cardiovascular: denies: Chest pain, Palpitations Respiratory: denies: Cough, Short of breath Gastrointestinal: denies: Abdominal pain, Diarrhea, Nausea, Vomiting -: Yes All other systems reviewed and negative Physical Exam - Vital signs Vitals: Temp Pulse Resp BP Pulse Ox 97.8 F 75 18 147/63 H 97 03/19/17 09:41 03/19/17 09:41 03/19/17 09:41 03/19/17 09:41 03/19/17 09:41 Interpretation: Hypertensive - General General appearance: Appears well, Alert - HEENT Head: Normocephalic, Atraumatic Eyes: Normal Pupils: PERRL - Respiratory Respiratory status: No respiratory distress Chest status: Nontender Breath sounds: Normal Chest palpation: Normal - Cardiovascular Rhythm: Regular Heart sounds: Normal auscultation Murmur: No - Abdominal Inspection: Normal Distension: No distension Bowel sounds: Normal Tenderness: Nontender Organomegaly: No organomegaly - Back Back: Normal, Nontender - Extremities General upper extremity: Normal inspection, Nontender, Normal color, Normal ROM , Normal temperature General lower extremity: Normal inspection, Nontender, Normal color, Normal ROM , Normal temperature, Normal weight bearing. 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 No: Pronator drift Sensory: Normal - Psychological Associated symptoms: Normal affect, Normal mood - Skin Skin Temperature: Warm Skin Moisture: Dry Skin Color: Normal Course - Re-evaluation Re-evalutation: 03/19/17 11:34 pt feels better after fioricet - Vital Signs Vital signs: Temp Pulse Resp BP Pulse Ox 97.8 F 75 18 147/63 H 97 03/19/17 09:41 03/19/17 09:41 03/19/17 09:41 03/19/17 09:41 03/19/17 09:41 - Laboratory Result Diagrams: 03/19/17 10:30 03/19/17 10:30 Laboratory results interpreted by me: 03/19/17 10:30 BUN 23 H - Diagnostic Test Radiology reviewed: Image reviewed, Reports reviewed - no acute path on CT Discharge - Discharge Clinical Impression: Acute headache Condition: Stable Disposition: HOME, SELF-CARE Instructions: Headache ([facility]) Additional Instructions: Please call your primary care physician as soon as possible to arrange follow-up Prescriptions: Butalb/Acetaminophen/Caffeine [Fioricet (50-325-40 mg) Tablet] 1 - 2 tab PO Q4H #20 tab
== END 2017-03-19 11:44 | disposition home or self-care (01) ==
LOC: ER 09:23
DX: R51 Headache (principal); I10 Essential (primary) hypertension; Z91.030 Bee allergy status
CPT/HCPCS: 99284; 36415; 85025; 80053; 81001; 70450; A9270; J3490

== ENCOUNTER 2017-10-30 10:57 | Emergency (ER) | payer MEDICARE ==
[2017-10-30 11:05] VITALS: BP 149/75
[2017-10-30] MEDS ORDERED: IPRATROPIUM/ALBUTEROL 0.5-2.5 MG/3 ML AMPUL NEB ONE (11:12)
[2017-10-30] MEDS ORDERED: BENZONATATE 100 MG CAPSULE PO ONE (11:12)
--- NOTE | 2017-10-30 11:18 | ER Document Report ---
ED General - General Chief Complaint: Chest Congestion Stated Complaint: CHEST PAIN Time Seen by Provider: 10/30/17 11:06 Notes: 76-year-old female here with complaints of productive cough chest pain improved with coughing up sputum shortness of breath wheezing nasal congestion runny nose ongoing for the past 2 weeks. She states that the urgent care facility put her on a Z-Subhash and prednisone pack which she has finished as of 2 days ago but she does not feel better. She has a nasal spray prescribed but has not been using it because "I forgot". Prior smoker but quit many years ago. TRAVEL OUTSIDE OF THE [place] IN LAST 30 DAYS: No - Related Data Allergies/Adverse Reactions: propoxyphene HCl [From Darvon] Adverse Reaction (Verified 10/30/17 10:58) Confusion Bee Stings Allergy (Uncoded 10/30/17 10:58) Home Medications: metoprolol,. pravastain,. hydrocodone,. oxycodone,. valium ,. lorazepam Past Medical History - Social History Smoking Status: Unknown if Ever Smoked Family History: None, Reviewed & Not Pertinent Patient has suicidal ideation: No Patient has homicidal ideation: No - Past Medical History Cardiac Medical History: Reports: Hx Hypercholesterolemia, Hx Hypertension Denies: Hx Coronary Artery Disease, Hx Heart Attack Pulmonary Medical History: Reports: Hx Pneumonia Denies: Hx Asthma, Hx Bronchitis, Hx COPD Neurological Medical History: Denies: Hx Cerebrovascular Accident, Hx Seizures Renal/ Medical History: Reports: Hx Kidney Stones - Seen on CT scan in the past. Denies: Hx Peritoneal Dialysis GI Medical History: Reports: Hx Gastroesophageal Reflux Disease, Hx Hiatal Hernia Musculoskeltal Medical History: Reports Hx Arthritis - all over Psychiatric Medical History: Reports: Hx Depression Past Surgical History: Reports: Hx Bowel Surgery - A gastric stent to repair hiatal hernia, Hx Gynecologic Surgery - BTL, Hx Tubal Ligation. Denies: Hx Hysterectomy, Hx Pacemaker - Immunizations Hx Diphtheria, Pertussis, Tetanus Vaccination: Yes Hx Pneumococcal Vaccination: 01/31/15 Review of Systems - Review of Systems Notes: See history of present illness for pertinent positive review of systems; otherwise all review of systems have been reviewed and are negative Physical Exam - Vital signs Vitals: Temp Pulse Resp BP Pulse Ox 97.9 F 78 16 149/75 H 94 10/30/17 11:02 10/30/17 11:02 10/30/17 11:02 10/30/17 11:02 10/30/17 11:02 - Notes Notes: PHYSICAL EXAMINATION: GENERAL: Well-appearing and in no acute distress. HEAD: Atraumatic, normocephalic. EYES: Pupils equal round and reactive to light, extraocular movements intact, sclera anicteric, conjunctiva are normal. ENT: nares patent, oropharynx clear without exudates. Moist mucous membranes. NECK: Normal range of motion, supple without lymphadenopathy LUNGS: CTAB and equal. No rales or rhonchi. Minimal end expiratory wheezes but normal aeration HEART: Regular rate and rhythm without murmurs ABDOMEN: Soft, no tenderness. No guarding, no rebound EXTREMITIES: Normal range of motion, no pitting edema. No cyanosis. NEUROLOGICAL: Cranial nerves grossly intact. Normal sensory/motor exams. PSYCH: Normal mood, normal affect. SKIN: Warm, Dry, normal turgor, no rashes or lesions noted Course - Re-evaluation Re-evalutation: 10/30/17 11:23 MEDICAL DECISION MAKING: Concern for reactive airway disease exacerbation versus URI versus pneumonia/ bronchitis Her vitals are unremarkable and she is not in extremis She was recently on prednisone so I will not put her on another Pred pack Will prescribe doxycycline codeine-guaifenesin albuterol inhaler and give duo neb here Instructed follow-up PCP next day or few Patient understands and agrees to the plan of care - Vital Signs Vital signs: Temp Pulse Resp BP Pulse Ox 97.9 F 78 16 149/75 H 94 10/30/17 11:02 10/30/17 11:02 10/30/17 11:02 10/30/17 11:02 10/30/17 11:02 Discharge - Discharge Clinical Impression: Cough Condition: Good Disposition: HOME, SELF-CARE Additional Instructions: Please finish the antibiotics and do not skip any doses. Use the prescribed cough medication as needed. Use the inhaler as needed for wheezing and cough. You were seen in the emergency department at [facility]. Please followup with your primary physician in the next few days for further management /evaluation. Please return to the emergency department for worsening of symptoms or any symptom that you deem to be concerning or life-threatening. Thank you for allowing us to be part of your care. Prescriptions: Albuterol Sulfate [Ventolin Hfa] 1 - 2 puff IH Q4HP PRN #1 [id number] PRN Reason: Codeine Phosphate/Guaifenesin [Codeine-Guaifen 10-100 mg/5 ml] 120 ml PO Q8HP PRN 7 Days liquid PRN Reason: Albuterol Sulfate [Proair HFA Inhalation Aerosol 8.5 gm MDI] 2 puff IH Q4H PRN # 1 mdi PRN Reason: Doxycycline Hyclate 100 mg PO BID #20 capsule
== END 2017-10-30 11:31 | disposition home or self-care (01) ==
LOC: ER 10:57
DX: R05 Cough (principal); R07.9 Chest pain, unspecified; R06.02 Shortness of breath; R09.81 Nasal congestion; R09.89 Other specified symptoms and signs involving the circulatory and respiratory systems; R06.2 Wheezing; I10 Essential (primary) hypertension; Z87.01 Personal history of pneumonia (recurrent); Z87.891 Personal history of nicotine dependence; Z91.030 Bee allergy status
CPT/HCPCS: 94640; 99283; A9270 ×2; J7620

== ENCOUNTER → 2017-11-12 | Outpatient (CLI) | payer MEDICAID, MEDICARE ==
--- NOTE | 2017-11-12 15:32 | RADIOLOGY REPORT (SQ) ---
EXAM DESCRIPTION: CT HEAD WITHOUT COMPLETED DATE/TIME: 11/12/2017 3:12 pm REASON FOR STUDY: PRIMARY COUGH HEADACHE G44.83 PRIMARY COUGH HEADACHE COMPARISON: 04/04/2017 TECHNIQUE: Axial images acquired through the brain without intravenous contrast. Images reviewed wi th bone, brain and subdural windows. Additional sagittal and coronal reconstructions were generated. Images stored on PACS. All CT scanners at this facility use dose modulation, iterative reconstruction, and/or weight based d osing when appropriate to reduce radiation dose to as low as reasonably achievable (ALARA). [facility]: Dose Right [facility]: CareDose [facility]: Dose Right [facility]: Teradose 4D [facility]: [email or web address] RADIATION DOSE: CT Rad equipment meets quality standard of care and radiation dose reduction techniq ues were employed. CTDIvol: 48.6 mGy. DLP: 880 mGy-cm. mGy. LIMITATIONS: None. FINDINGS: VENTRICLES: Normal size and contour. CEREBRUM: No masses. No hemorrhage. No midline shift. No evidence for acute infarction. Normal gra y/white matter differentiation. No areas of low density in the white matter. CEREBELLUM: No masses. No hemorrhage. No alteration of density. No evidence for acute infarction. EXTRAAXIAL SPACES: No fluid collections. No masses. ORBITS AND GLOBE: No intra- or extraconal masses. Normal contour of globe without masses. CALVARIUM: No fracture. PARANASAL SINUSES: No fluid or mucosal thickening. SOFT TISSUES: No mass or hematoma. OTHER: No other significant finding. IMPRESSION: NORMAL BRAIN CT WITHOUT CONTRAST. EVIDENCE OF ACUTE STROKE: NO. COMMENT: Quality ID # [id number]: Final reports with documentation of one or more dose reduction techniques (e.g., Automated exposure control, adjustment of the mA and/or kV according to patient size, use of iterative reconstruction technique) TECHNICAL DOCUMENTATION: JOB ID: [id number] [employer]- All Rights Reserved Reading location - IP/workstation name: [email or web address]
== END ==
LOC: RAD 14:54
PROVIDERS: ATTEND Family Medicine
DX: G44.83 Primary cough headache (principal)
CPT/HCPCS: 70450

== ENCOUNTER 2018-01-15 16:37 | Emergency (ER) | payer MEDICARE, MEDICAID ==
--- NOTE | 2018-01-15 16:58 | ER Document Report ---
ED GI/ - General Chief Complaint: Flank Pain Stated Complaint: SIDE PAIN Time Seen by Provider: 01/15/18 16:53 Notes: The patient is a 77-year-old female, past medical history left renal stone, presents with 2 days of right flank pain radiating to her groin. She is also having increased urinary frequency and dark urine. She denies fevers, nausea, vomiting, hematuria, diarrhea, constipation, chest pain or shortness of breath. TRAVEL OUTSIDE OF THE [place] IN LAST 30 DAYS: No - Related Data Allergies/Adverse Reactions: propoxyphene HCl [From Darvon] Adverse Reaction (Verified 01/15/18 16:47) Confusion Bee Stings Allergy (Uncoded 01/15/18 16:47) Past Medical History - General Information source: Patient - Social History Smoking Status: Former Smoker Family History: None, Reviewed & Not Pertinent - Past Medical History Cardiac Medical History: Reports: Hx Hypercholesterolemia, Hx Hypertension Denies: Hx Coronary Artery Disease, Hx Heart Attack Pulmonary Medical History: Reports: Hx Pneumonia Denies: Hx Asthma, Hx Bronchitis, Hx COPD Neurological Medical History: Denies: Hx Cerebrovascular Accident, Hx Seizures Renal/ Medical History: Reports: Hx Kidney Stones - Seen on CT scan in the past. Denies: Hx Peritoneal Dialysis GI Medical History: Reports: Hx Gastroesophageal Reflux Disease, Hx Hiatal Hernia Musculoskeltal Medical History: Reports Hx Arthritis - all over Psychiatric Medical History: Reports: Hx Depression Past Surgical History: Reports: Hx Bowel Surgery - A gastric stent to repair hiatal hernia, Hx Gynecologic Surgery - BTL, Hx Tubal Ligation. Denies: Hx Hysterectomy, Hx Pacemaker - Immunizations Hx Diphtheria, Pertussis, Tetanus Vaccination: Yes Hx Pneumococcal Vaccination: 01/31/15 Review of Systems - Review of Systems Notes: REVIEW OF SYSTEMS: CONSTITUTIONAL: -fevers, -chills EENT: -eye pain, -difficulty swallowing, -nasal congestion CARDIOVASCULAR: -chest pain, -syncope. RESPIRATORY: -cough, -SOB GASTROINTESTINAL: -abdominal pain, -nausea, -vomiting, -diarrhea GENITOURINARY: -dysuria, -hematuria MUSCULOSKELETAL: +right flank pain, -neck pain SKIN: -rash or skin lesions. HEMATOLOGIC: -easy bruising or bleeding. LYMPHATIC: -swollen, enlarged glands. NEUROLOGICAL: -altered mental status or loss of consciousness, -headache, - neurologic symptoms PSYCHIATRIC: -anxiety, -depression. ALL OTHER SYSTEMS REVIEWED AND NEGATIVE. Physical Exam - Vital signs Vitals: Temp Pulse Resp BP Pulse Ox 98.4 F 77 17 144/59 H 96 01/15/18 16:41 01/15/18 16:41 01/15/18 16:41 01/15/18 16:41 01/15/18 16:41 - Notes Notes: PHYSICAL EXAMINATION: GENERAL: Well-appearing, well-nourished and in no acute distress. HEAD: Atraumatic, normocephalic. EYES: Pupils equal round and reactive to light, extraocular movements intact, sclera anicteric, conjunctiva are normal. ENT: nares patent, oropharynx clear without exudates. Moist mucous membranes. NECK: Normal range of motion, supple without lymphadenopathy LUNGS: Breath sounds clear to auscultation bilaterally and equal. No wheezes rales or rhonchi. HEART: Regular rate and rhythm without murmurs ABDOMEN: Soft, nontender, normoactive bowel sounds. No guarding, no rebound. No masses appreciated. EXTREMITIES: Normal range of motion, no pitting or edema. No cyanosis. BACK: Right CVA tenderness. NEUROLOGICAL: Cranial nerves grossly intact. Normal speech, normal gait. Normal sensory and motor exams. PSYCH: Normal mood, normal affect. SKIN: Warm, Dry, normal turgor, no rashes or lesions noted. Course - Re-evaluation Re-evalutation: Patient appears well. Blood work and urine are unremarkable. CT scan obtained to assess for presence of kidney stones, but no kidney stone seen on the right side. Instructed her about flank pain management with anti-inflammatories and Lidoderm patches. She will follow with her primary care physician for further evaluation and treatment. No signs or symptoms of AAA or aortic dissection at this time. - Vital Signs Vital signs: Temp Pulse Resp BP Pulse Ox 98.4 F 77 17 144/59 H 96 01/15/18 16:41 01/15/18 16:41 01/15/18 16:41 01/15/18 16:41 01/15/18 16:41 - Laboratory Result Diagrams: 01/15/18 17:11 01/15/18 17:11 - Diagnostic Test Radiology reviewed: Image reviewed, Reports reviewed Radiology results interpreted by me: CT A/P: Nonobstructing left renal calculus multiple diverticulae a are identified throughout the colon but especially in the sigmoid colon without CT evidence for diverticulitis. Other findings as noted above. Discharge - Discharge Clinical Impression: Right flank pain Condition: Stable Disposition: HOME, SELF-CARE Additional Instructions: Flank Pain We weren't able to prove an exact cause for your flank pain. Pain in the flank can be caused by a muscle strain or spasm. Sometimes a kidney stone causes pain, but can't be found on our tests. Infection in the kidney should be evident on a urine test. Early shingles can occasionally cause flank pain, without the rash that proves the diagnosis. On rare occasions, disease of the pancreas, aorta, spleen, or colon can create pain in the flank. At this time, there's no evidence of a dangerous condition, and it seems safe for you to be at home. If the pain goes away and does not come back, no further testing will be needed. If pain persists, or becomes more severe, we may need to repeat some tests or order additional new testing. Blood in the urine, urgency to urinate frequently, and pain that radiates to the groin can indicate a kidney stone. Fever may mean that the pain is due to infection, either of the kidney or the colon (diverticulitis). If your pain is early shingles, you should develop an eruption of blisters in the painful area within a few days. Call the doctor or return if you have pain that is spreading or becoming more severe, pain that does not resolve with time, fever, or any other new symptoms. Prescriptions: Lidocaine [Lidoderm 5% (700 mg) Transdermal Patch] 1 patch TP DAILY #10 adh..patch Naproxen [Naprosyn 250 mg Tablet] 500 mg PO Q12H PRN #14 tablet PRN Reason: Forms: Elevated Blood Pressure Referrals: RAMONE CRAWFORD MD [Primary Care Provider] - Follow up as needed
[2018-01-15 17:23] LABS: ABSOLUTE BASOPHILS # (AUTO) 0.1 10^3/uL (0.0-0.2); ABSOLUTE EOSINOPHILS # (AUTO) 0.1 10^3/uL (0.0-0.6); ABSOLUTE LYMPHOCYTES (AUTO) 2.3 10^3/uL (0.5-4.7); ABSOLUTE MONOCYTES (AUTO) 0.5 10^3/uL (0.1-1.4); BASOPHILS % (AUTO) 0.7 % (0-2); EOSINOPHILS % (AUTO) 1.8 % (0-6); HEMATOCRIT 38.3 % (36.0-47.0); HEMOGLOBIN 13.1 g/dL (12.0-15.5); LYMPHOCYTES % (AUTO) 28.9 % (13-45); MEAN CORPUSCULAR HEMOGLOBIN 31.8 pg (27.0-33.4); MEAN CORPUSCULAR HGB CONC 34.2 g/dL (32.0-36.0); MEAN CORPUSCULAR VOLUME 93 fl (80-97); MONOCYTES % (AUTO) 6.7 % (3-13); PLATELET COUNT 247 10^3/uL (150-450); RED BLOOD COUNT 4.11 10^6/uL (3.72-5.28); RED CELL DISTRIBUTION WIDTH 13.5 % (11.5-14.0); SEGMENTED NEUTROPHILS % (AUTO) 61.9 % (42-78); TOTAL CELLS COUNTED % (AUTO) 100 %; WHITE BLOOD COUNT 8.1 10^3/uL (4.0-10.5)
[2018-01-15 17:27] LABS: APPEARANCE,URINE CLEAR; BILIRUBIN,URINE NEGATIVE (NEGATIVE); COLOR,URINE STRAW; GLUCOSE, URINE NEGATIVE (NEGATIVE); KETONES,URINE NEGATIVE (NEGATIVE); LEUKOCYTE ESTERASE,URINE NEGATIVE (NEGATIVE); NITRITE,URINE NEGATIVE (NEGATIVE); PROTEIN,URINE NEGATIVE (NEGATIVE); URINE SPECIFIC GRAVITY 1.011; UROBILINOGEN,URINE NEGATIVE mg/dL (<2.0)
[2018-01-15 17:37] LABS: ALANINE AMINOTRANSFERASE 27 U/L (9-52); ALBUMIN 4.4 g/dL (3.5-5.0); ALKALINE PHOSPHATASE 63 U/L (38-126); ANION GAP 11 (5-19); ASPARTATE AMINO TRANSFERASE 21 U/L (14-36); BILIRUBIN,DIRECT 0.3 mg/dL (0.0-0.4); BILIRUBIN,TOTAL 0.6 mg/dL (0.2-1.3); BLOOD UREA NITROGEN 17 mg/dL (7-20); CARBON DIOXIDE 25 mmol/L (22-30); CHLORIDE 106 mmol/L (98-107); GLUCOSE 87 mg/dL (75-110); POTASSIUM 4.7 mmol/L (3.6-5.0); SODIUM 141.9 mmol/L (137-145); TOTAL PROTEIN 7.1 g/dL (6.3-8.2)
--- NOTE | 2018-01-15 17:47 | RADIOLOGY REPORT (SQ) ---
EXAM DESCRIPTION: CT LTD RENAL STONE PROTOCOL ON COMPLETED DATE/TIME: 01/15/2018 5:24 pm REASON FOR STUDY: right flank pain COMPARISON: July 2017 TECHNIQUE: CT scan of the abdomen and pelvis performed without intravenous or oral contrast. Images reviewed with lung, soft tissue, and bone windows. Reconstructed coronal and sagittal MPR images revi ewed. All images stored on PACS. All CT scanners at this facility use dose modulation, iterative reconstruction, and/or weight based d osing when appropriate to reduce radiation dose to as low as reasonably achievable (ALARA). [facility]: Dose Right [facility]: CareDose [facility]: Dose Right [facility]: Teradose 4D [facility]: Smart DGIT RADIATION DOSE: CT Rad equipment meets quality standard of care and radiation dose reduction techniq ues were employed. CTDIvol: 3.9 mGy. DLP: 197 mGy-cm.mGy. LIMITATIONS: None. FINDINGS: LOWER CHEST: No significant findings. No nodules or infiltrates. NON-CONTRASTED LIVER, SPLEEN, ADRENALS: Evaluation limited by lack of IV contrast. No identified sign ificant masses. PANCREAS: No masses. No peripancreatic inflammatory changes. GALLBLADDER: No identified stones by CT criteria. No inflammatory changes to suggest cholecystitis. RIGHT KIDNEY AND URETER: No suspicious masses. Assessment limited by lack of IV contrast. No signif icant calcifications. No hydronephrosis or hydroureter. LEFT KIDNEY AND URETER: No suspicious masses. Assessment limited by lack of IV contrast. Small nono bstructing renal calculus is again identified. No hydronephrosis or hydroureter. AORTA AND RETROPERITONEUM: No aneurysm. No retroperitoneal masses or adenopathy. BOWEL AND PERITONEAL CAVITY: Multiple diverticular are identified throughout the colon but especially in the sigmoid colon without CT evidence for diverticulitis. APPENDIX: Normal. PELVIS, BLADDER, AND ABDOMINAL WALL:No abnormal masses. No free fluid. Bladder normal. Patient is st atus post hernia repair in the anterior abdominal wall. BONES: Degenerative changes are again identified in the lumbar spine OTHER: No other significant finding. IMPRESSION: Nonobstructing left renal calculus multiple diverticulae a are identified throughout the colon but especially in the sigmoid colon without CT evidence for diverticulitis. Other findings as noted above COMMENT: Quality ID # [id number]: Final reports with documentation of one or more dose reduction techniques (e.g., Automated exposure control, adjustment of the mA and/or kV according to patient size, use of iterative reconstruction technique) TECHNICAL DOCUMENTATION: JOB ID: [id number] [employer]- All Rights Reserved Reading location - IP/workstation name: [email or web address]
[2018-01-15 18:45] VITALS: BP 140/82
== END 2018-01-15 19:05 | disposition home or self-care (01) ==
LOC: ER 16:37
DX: R10.9 Unspecified abdominal pain (principal); R10.30 Lower abdominal pain, unspecified; R35.0 Frequency of micturition; Z87.891 Personal history of nicotine dependence; I10 Essential (primary) hypertension
CPT/HCPCS: 36415; 76380; 80053; 81001; 85025; 99284

== ENCOUNTER 2018-02-03 09:17 | Emergency (ER) | payer MEDICARE, MEDICAID ==
[2018-02-03] MEDS ORDERED: ONDANSETRON 4 MG TAB.RAPDIS PO ONE (09:34)
[2018-02-03] MEDS ORDERED: MORPHINE SULFATE 10 MG/ML INJ IV ONE (09:34)
[2018-02-03] MEDS ORDERED: KETOROLAC TROMETHAMINE INJ/PF 30 MG/1 ML SDV IV ONE (09:34)
--- NOTE | 2018-02-03 09:34 | ER Document Report ---
ED Medical Screen (RME) - General Chief Complaint: Lower Abdominal Pain Stated Complaint: SIDE PAIN Time Seen by Provider: 02/03/18 09:28 Notes: Patient is a 77-year-old female, past medical history left-sided kidney stone, diverticulosis, presents with 2 days of worsening left lower quadrant abdominal pain and nausea. She has not had a bowel movement and is unsure if there is any blood in her stool. Denies vomiting, urinary symptoms, fevers or rash. PE: Uncomfortable. Tenderness over LLQ (limited abdominal exam in RME chair). Normal bowel sounds. No CVA tenderness. I have greeted and performed a rapid initial assessment of this patient. A comprehensive ED assessment and evaluation of the patient, analysis of test results and completion of the medical decision making process will be conducted by additional ED providers. TRAVEL OUTSIDE OF THE [place] IN LAST 30 DAYS: No - Related Data Allergies/Adverse Reactions: propoxyphene HCl [From Darvon] Adverse Reaction (Verified 02/03/18 09:22) Confusion Bee Stings Allergy (Uncoded 02/03/18 09:22) Past Medical History - Social History Chew tobacco use (# tins/day): No Frequency of alcohol use: None Drug Abuse: None - Past Medical History Cardiac Medical History: Reports: Hx Hypercholesterolemia, Hx Hypertension Denies: Hx Coronary Artery Disease, Hx Heart Attack Pulmonary Medical History: Reports: Hx Pneumonia Denies: Hx Asthma, Hx Bronchitis, Hx COPD Neurological Medical History: Denies: Hx Cerebrovascular Accident, Hx Seizures Renal/ Medical History: Reports: Hx Kidney Stones - Seen on CT scan in the past. Denies: Hx Peritoneal Dialysis GI Medical History: Reports: Hx Gastroesophageal Reflux Disease, Hx Hiatal Hernia Musculoskeltal Medical History: Reports Hx Arthritis - all over Psychiatric Medical History: Reports: Hx Depression Past Surgical History: Reports: Hx Bowel Surgery - A gastric stent to repair hiatal hernia, Hx Gynecologic Surgery - BTL, Hx Tubal Ligation. Denies: Hx Hysterectomy, Hx Pacemaker - Immunizations Hx Diphtheria, Pertussis, Tetanus Vaccination: Yes Physical Exam - Vital signs Vitals: Temp Pulse Resp BP Pulse Ox 98.1 F 87 18 137/61 H 99 02/03/18 09:21 02/03/18 09:21 02/03/18 09:21 02/03/18 09:21 02/03/18 09:21 Course - Vital Signs Vital signs: Temp Pulse Resp BP Pulse Ox 98.1 F 87 18 137/61 H 99 02/03/18 09:21 02/03/18 09:21 02/03/18 09:21 02/03/18 09:21 02/03/18 09:21 Doctor's Discharge - Discharge Referrals: RAMONE CRAWFORD MD [Primary Care Provider] - Follow up as needed
[2018-02-03 10:02] LABS: APPEARANCE,URINE CLEAR; BILIRUBIN,URINE NEGATIVE (NEGATIVE); COLOR,URINE YELLOW; GLUCOSE, URINE NEGATIVE (NEGATIVE); KETONES,URINE NEGATIVE (NEGATIVE); LEUKOCYTE ESTERASE,URINE NEGATIVE (NEGATIVE); NITRITE,URINE NEGATIVE (NEGATIVE); PROTEIN,URINE 30 mg/dL (NEGATIVE); URINE SPECIFIC GRAVITY 1.016; UROBILINOGEN,URINE NEGATIVE mg/dL (<2.0)
[2018-02-03 10:37] LABS: ABSOLUTE BASOPHILS # (AUTO) 0.1 10^3/uL (0.0-0.2); ABSOLUTE EOSINOPHILS # (AUTO) 0.1 10^3/uL (0.0-0.6); ABSOLUTE LYMPHOCYTES (AUTO) 1.8 10^3/uL (0.5-4.7); ABSOLUTE MONOCYTES (AUTO) 0.9 10^3/uL (0.1-1.4); ABSOLUTE NEUT (AUTO) 10.1 10^3/uL (1.7-8.2); BASOPHILS % (AUTO) 0.5 % (0-2); EOSINOPHILS % (AUTO) 0.6 % (0-6); HEMATOCRIT 38.9 % (36.0-47.0); HEMOGLOBIN 13.5 g/dL (12.0-15.5); LYMPHOCYTES % (AUTO) 13.6 % (13-45); MEAN CORPUSCULAR HEMOGLOBIN 32.1 pg (27.0-33.4); MEAN CORPUSCULAR HGB CONC 34.6 g/dL (32.0-36.0); MEAN CORPUSCULAR VOLUME 93 fl (80-97); PLATELET COUNT 233 10^3/uL (150-450); RED CELL DISTRIBUTION WIDTH 13.3 % (11.5-14.0); SEGMENTED NEUTROPHILS % (AUTO) 78.3 % (42-78); TOTAL CELLS COUNTED % (AUTO) 100 %; WHITE BLOOD COUNT 12.9 10^3/uL (4.0-10.5)
[2018-02-03 11:02] LABS: ALANINE AMINOTRANSFERASE 21 U/L (9-52); ALBUMIN 4.4 g/dL (3.5-5.0); ALKALINE PHOSPHATASE 64 U/L (38-126); ANION GAP 11 (5-19); ASPARTATE AMINO TRANSFERASE 16 U/L (14-36); BILIRUBIN,DIRECT 0.3 mg/dL (0.0-0.4); BLOOD UREA NITROGEN 14 mg/dL (7-20); CALCIUM 9.4 mg/dL (8.4-10.2); CARBON DIOXIDE 25 mmol/L (22-30); CHLORIDE 105 mmol/L (98-107); GLUCOSE 123 mg/dL (75-110); LIPASE 140.7 U/L (23-300); POTASSIUM 4.4 mmol/L (3.6-5.0); TOTAL PROTEIN 7.2 g/dL (6.3-8.2)
--- NOTE | 2018-02-03 11:34 | ER Document Report ---
ED General - General Chief Complaint: Lower Abdominal Pain Stated Complaint: SIDE PAIN Time Seen by Provider: 02/03/18 09:28 Mode of Arrival: Ambulatory Information source: Patient Notes: 77-year-old female presents with complaints of left lower quadrant abdominal pain. Patient has symptoms have been ongoing for 4 days, she has a history of diverticulitis. She has had a surgical intervention for but states this was many years ago and she does not remember that what. She denies any fevers or chills denies any nausea vomiting. She had diarrhea 3 days ago TRAVEL OUTSIDE OF THE [place] IN LAST 30 DAYS: No - HPI Onset: Other Onset/Duration: Persistent Quality of pain: Cramping Severity: Mild Pain Level: 2 Associated symptoms: Other Exacerbated by: Denies Relieved by: Denies Similar symptoms previously: Yes Recently seen / treated by doctor: No - Related Data Allergies/Adverse Reactions: propoxyphene HCl [From Darvon] Adverse Reaction (Verified 02/03/18 09:22) Confusion Bee Stings Allergy (Uncoded 02/03/18 09:22) Past Medical History - Social History Smoking Status: Former Smoker Cigarette use (# per day): No Chew tobacco use (# tins/day): No Smoking Education Provided: No Frequency of alcohol use: None Drug Abuse: None Family History: None, Reviewed & Not Pertinent Patient has suicidal ideation: No Patient has homicidal ideation: No - Past Medical History Cardiac Medical History: Reports: Hx Hypercholesterolemia, Hx Hypertension Denies: Hx Coronary Artery Disease, Hx Heart Attack Pulmonary Medical History: Reports: Hx Pneumonia Denies: Hx Asthma, Hx Bronchitis, Hx COPD Neurological Medical History: Denies: Hx Cerebrovascular Accident, Hx Seizures Renal/ Medical History: Reports: Hx Kidney Stones - Seen on CT scan in the past. Denies: Hx Peritoneal Dialysis GI Medical History: Reports: Hx Gastroesophageal Reflux Disease, Hx Hiatal Hernia Musculoskeltal Medical History: Reports Hx Arthritis - all over Psychiatric Medical History: Reports: Hx Depression Past Surgical History: Reports: Hx Bowel Surgery - A gastric stent to repair hiatal hernia, Hx Gynecologic Surgery - BTL, Hx Tubal Ligation. Denies: Hx Hysterectomy, Hx Pacemaker - Immunizations Hx Diphtheria, Pertussis, Tetanus Vaccination: Yes Hx Pneumococcal Vaccination: 01/31/15 Review of Systems - Review of Systems Notes: REVIEW OF SYSTEMS: CONSTITUTIONAL : Denies fever, chills, or sweats. Denies recent illness. EENT: Denies eye, ear, throat, or mouth pain or symptoms. Denies nasal or sinus congestion or discharge. Denies throat, tongue, or mouth swelling or difficulty swallowing. CARDIOVASCULAR: Denies chest pain. Denies palpitations or racing or irregular heart beat. Denies ankle edema. RESPIRATORY: Denies cough, cold, or chest congestion. Denies shortness of breath, difficulty breathing, or wheezing. GASTROINTESTINAL: Admits to left lower quadrant abdominal pain GENITOURINARY: Denies difficulty urinating, painful urination, burning, frequency, blood in urine, or discharge. FEMALE GENITOURINARY: Denies vaginal bleeding, heavy or abnormal periods, irregular periods. Denies vaginal discharge or odor. MUSCULOSKELETAL: Denies back or neck pain or stiffness. Denies joint pain or swelling. SKIN: Denies rash, lesions or sores. HEMATOLOGIC : Denies easy bruising or bleeding. LYMPHATIC: Denies swollen, enlarged glands. NEUROLOGICAL: Denies confusion or altered mental status. Denies passing out or loss of consciousness. Denies dizziness or lightheadedness. Denies headache. Denies weakness or paralysis or loss of use of either side. Denies problems with gait or speech. Denies sensory loss, numbness, or tingling. Denies seizures. PSYCHIATRIC: Denies anxiety or stress. Denies depression, suicidal ideation, or homicidal ideation. ALL OTHER SYSTEMS REVIEWED AND NEGATIVE. PHYSICAL EXAMINATION: GENERAL: Well-appearing, well-nourished and in no acute distress. HEAD: Atraumatic, normocephalic. EYES: Pupils equal round and reactive to light, extraocular movements intact, conjunctiva are normal. ENT: Nares patent, oropharynx clear without exudates. Moist mucous membranes. NECK: Normal range of motion, supple without lymphadenopathy LUNGS: Breath sounds clear to auscultation bilaterally and equal. No wheezes rales or rhonchi. HEART: Regular rate and rhythm without murmurs ABDOMEN: Soft, tender in the left lower quadrant abdomen. No guarding, no rebound. No masses appreciated. Female : deferred Musculoskeletal: Normal range of motion, no pitting or edema. No cyanosis. NEUROLOGICAL: Cranial nerves grossly intact. Normal speech, normal gait. Normal sensory, motor exams PSYCH: Normal mood, normal affect. SKIN: Warm, Dry, normal turgor, no rashes or lesions noted. Dictation was performed using [employer] voice recognition software Physical Exam - Vital signs Vitals: Temp Pulse Resp BP Pulse Ox 98.1 F 87 18 137/61 H 99 02/03/18 09:21 02/03/18 09:21 02/03/18 09:21 02/03/18 09:21 02/03/18 09:21 Course - Re-evaluation Re-evalutation: 02/03/18 15:07 CT is consistent with diverticulitis, patient will be started on antibiotics otherwise stable After performing a Medical Screening Examination, I estimate there is LOW risk for ACUTE APPENDICITIS, BOWEL OBSTRUCTION, ACUTE CHOLECYSTITIS, PERFORATED DIVERTICULITIS, INCARCERATED HERNIA, PANCREATITIS, PELVIC INFLAMMATORY DISEASE, PERFORATED ULCER, ECTOPIC , or TUBO-OVARIAN ABSCESS, thus I consider the discharge disposition reasonable. Also, there is no evidence or peritonitis , sepsis, or toxicity. I have reevaluated this patient multiple times and no significant life threatening changes are noted. The patient and I have discussed the diagnosis and risks, and we agree with discharging home with close follow-up with the understanding that symptoms and presentations can change. We also discussed returning to the Emergency Department immediately if new or worsening symptoms occur. We have discussed the symptoms which are most concerning (e.g., bloody stool, fever, changing or worsening pain, vomiting) that necessitate immediate return. - Vital Signs Vital signs: Temp Pulse Resp BP Pulse Ox 98.1 F 87 18 137/61 H 99 02/03/18 09:21 02/03/18 09:21 02/03/18 09:21 02/03/18 09:21 02/03/18 09:21 - Laboratory Result Diagrams: 02/03/18 10:15 02/03/18 10:15 Laboratory results interpreted by me: 02/03/18 02/03/18 02/03/18 09:39 10:15 10:15 WBC 12.9 H Seg Neutrophils % 78.3 H Absolute Neutrophils 10.1 H Glucose 123 H Urine Protein 30 H Urine Blood SMALL H Discharge - Discharge Clinical Impression: Diverticulitis Condition: Stable Disposition: HOME, SELF-CARE Instructions: Diverticulitis (OM) Prescriptions: Ciprofloxacin HCl [Cipro 500 mg Tablet] 500 mg PO BID #20 tablet Hydrocodone/Acetaminophen [Orange 5-325 mg Tablet] 1 tab PO Q6 #10 tablet Metoclopramide HCl [Reglan 10 mg Tablet] 1 - 2 tab PO Q6 #25 tablet Metronidazole [Flagyl 500 mg Tablet] 500 mg PO Q6H #40 tablet Referrals: RAMONE CRAWFORD MD [Primary Care Provider] - Follow up as needed
[2018-02-03] MEDS ORDERED: HYDROMORPHONE HCL INJ/PF 2 MG/ML AMPULE IV ONE (12:12)
[2018-02-03] MEDS ORDERED: METOCLOPRAMIDE HCL INJ/PF 10 MG/2 ML SDV IV ONE (13:35)
--- NOTE | 2018-02-03 14:16 | RADIOLOGY REPORT (SQ) ---
EXAM DESCRIPTION: CT ABD/PELVIS WITH IV ORAL COMPLETED DATE/TIME: 02/03/2018 2:01 pm REASON FOR STUDY: LLQ pain hx diverticulitis COMPARISON: CT abdomen pelvis 01/15/2018, 12/28/2014, 12/10/2014 TECHNIQUE: CT scan of the abdomen and pelvis performed using helical scanning technique with dynamic intravenous contrast injection. Patient drank oral contrast. Images reviewed with lung, soft tissue , and bone windows. Reconstructed coronal and sagittal MPR images reviewed. Delayed images for evalua tion of the urinary system also acquired. All images stored on PACS. All CT scanners at this facility use dose modulation, iterative reconstruction, and/or weight based d osing when appropriate to reduce radiation dose to as low as reasonably achievable (ALARA). [facility]: Dose Right [facility]: CareDose [facility]: Dose Right [facility]: Teradose 4D [facility]: Plumbr CONTRAST TYPE AND DOSE: contrast/concentration: Isovue 370.00 mg/ml; Total Contrast Delivered: 63.0 ml; Total Saline Delivered: 65.0 ml RENAL FUNCTION: Creatinine 0.6 RADIATION DOSE: CT Rad equipment meets quality standard of care and radiation dose reduction techniq ues were employed. CTDIvol: NaN - NaN mGy. DLP: 0 mGy-cm.. LIMITATIONS: None. FINDINGS: Along the distal descending colon, there is a short segment of wall thickening, luminal na rrowing and adjacent pericolic fat inflammation from acute diverticulitis. This is best shown on axi al images 56 through 66, coronal images 23 through 33. No free air. No abscess. No free fluid. Oral contrast is seen throughout the remainder of the gastrointestinal tract without evidence of prem l obstruction or inflammation. Diffuse colonic diverticulosis. LOWER CHEST: Moderate size retrocardiac hiatal hernia. LIVER: Normal size. No masses. No dilated ducts. SPLEEN: Normal size. No focal lesions. PANCREAS: No masses. No significant calcifications. No adjacent inflammation or peripancreatic fluid collections. Pancreatic duct not dilated. GALLBLADDER: No identified stones by CT criteria. No inflammatory changes to suggest cholecystitis. ADRENAL GLANDS: No significant masses or asymmetry. RIGHT KIDNEY AND URETER: No solid masses. No significant calcifications. No hydronephrosis or hyd roureter. LEFT KIDNEY AND URETER: 1 cm left upper pole, 1.5 cm left lower pole renal cortical cysts. 7 mm left lower pole intrarenal nonobstructive stone. No hydronephrosis or hydroureter. AORTA AND VESSELS: No aneurysm. No dissection. Renal arteries, SMA, celiac without stenosis. RETROPERITONEUM: No retroperitoneal adenopathy, hemorrhage or masses. BOWEL AND PERITONEAL CAVITY: As above APPENDIX: Normal. PELVIS: No mass. No free fluid. Normal bladder. Normal size female pelvic organs. ABDOMINAL WALL: Intact umbilical hernia laparoscopic repair. BONES: No significant or acute findings. OTHER: No other significant finding. IMPRESSION: Distal descending colon diverticulitis without abscess or perforation. TECHNICAL DOCUMENTATION: JOB ID: [id number] Quality ID # [id number]: Final reports with documentation of one or more dose reduction techniques (e.g., Au tomated exposure control, adjustment of the mA and/or kV according to patient size, use of iterative reconstruction technique) 2010 [employer]- All Rights Reserved Reading location - IP/workstation name: [email or web address]
[2018-02-03 15:18] VITALS: BP 109/58
== END 2018-02-03 15:15 | disposition home or self-care (01) ==
LOC: ER 09:17
DX: K57.32 Diverticulitis of large intestine without perforation or abscess without bleeding (principal); R10.32 Left lower quadrant pain; I10 Essential (primary) hypertension; Z91.030 Bee allergy status
CPT/HCPCS: 99284; 96374; 96375; 36415; 83690; 85025; 80053; 81001; 74177; A9270; J1885; J2765; J2270; J1170; S0119

== ENCOUNTER → 2018-02-20 | Outpatient (CLI) | payer MEDICAID, MEDICARE ==
--- NOTE | 2018-02-20 15:37 | WOMENS IMAGING REPORT ---
EXAM DESCRIPTION: 3D SCREENING MAMMO BILAT COMPLETED DATE/TIME: 02/20/2018 2:58 pm REASON FOR STUDY: SCREENING MAMMO Z12.31 ENCNTR SCREEN MAMMOGRAM FOR MALIGNANT NEOPLASM OF ROMIE COMPARISON: 2012 to 2016 TECHNIQUE: Standard craniocaudal and mediolateral oblique views of each breast recorded using digita l acquisition and breast tomosynthesis. LIMITATIONS: None. FINDINGS: No masses, calcifications or architectural distortion. No areas of suspicion. Read with the assistance of CAD. .[facility] - R2 Cenova Version 1.3 .[facility] Imaging - R2 Cenova Version 1.3 .[facility] Imaging - R2 Cenova Version 2.4 .[facility] [place] - R2 Cenova Version 2.4 .[facility] - R2 Packing Attendant Version 9.2 IMPRESSION: NORMAL MAMMOGRAM. BIRADS 1. BREAST DENSITY: b. There are scattered areas of fibroglandular density. BIRAD: 1 NEGATIVE RECOMMENDATION: ROUTINE SCREENING COMMENT: The patient has been notified of the results by letter per SA requirements. Additional no tification policies are in place for contacting patient with suspicious or incomplete findings. Quality ID #[id number]: The [employer] recommends an annual screening mammogram for women aged 40 years or over. This facility utilizes a reminder system to ensure that all patients receive reminder letters, and/or direct phone calls for appointments. This includes reminders for routine scr eening mammograms, diagnostic mammograms, or other Breast Imaging Interventions when appropriate. Th is patient will be placed in the appropriate reminder system. The [employer] (ACR) has developed recommendations for screening MRI of the breast s in certain patient populations, to be used in conjunction with mammography. Breast MRI surveillanc e may be appropriate for women with more than 20% lifetime risk of developing breast cancer as deter mined by genetic testing, significant family history of the disease, or history of mantle radiation f or Hodgkins Disease. ACR Practice Guidelines 2008. DBT Technology DBT is a type of tomographic mammography. With conventional mammography, overlapping breast tissue ma y make lesions difficult to detect, even with good compression. DBT uses an x-ray tube that rotates a round the breast, taking images at different angles. These images are then combined to create thin sl ices of the breast that the radiologist can view as a 3D reconstruction. The Rhythm NewMedia unit can perform full-field digital mammograms (2D imaging); or DBT (3D imaging); or both, in a combination mode that quickly performs both the mammogram and the tomosynthesis scan while the breast is still compressed. PQRS 6045F: Fluoroscopic imaging is not utilized for breast tomosynthesis. TECHNICAL DOCUMENTATION: FINDING NUMBER: (1) ASSESSMENT: (1) JOB ID: [id number] [employer]- All Rights Reserved Reading location - IP/workstation name: [email or web address]
== END ==
LOC: WI 14:32
PROVIDERS: ATTEND Family Medicine
DX: Z12.31 Encounter for screening mammogram for malignant neoplasm of breast (principal)
CPT/HCPCS: 77063; 77067

== ENCOUNTER → 2018-06-02 | Outpatient (CLI) | payer MEDICAID, MEDICARE ==
--- NOTE | 2018-06-02 13:15 | WOMENS IMAGING REPORT ---
EXAM DESCRIPTION: BONE DENSITY HIP/SPINE COMPLETED DATE/TIME: 06/02/2018 1:01 pm REASON FOR STUDY: ASYMPTOMATIC MENOPAUSAL STATE Z78.0 ASYMPTOMATIC MENOPAUSAL STATE COMPARISON: None. TECHNIQUE: Dual-Energy X-ray Absorptiometry (DEXA) of the AP Spine and Hip. LIMITATIONS: None. FINDINGS: LUMBAR SPINE: The bone mineral density (BMD) measured from L1-L4 in the AP projection correlates with a T-score of -2.5, which is osteoporosis as defined by the World Health Organization. HIP: The bone mineral density (BMD) measured in the left hip correlates with a T-score of -2.5, which is o steoporosis as defined by the World Health Organization. IMPRESSION: 1. LUMBAR SPINE: OSTEOPOROSIS. 2. HIP: OSTEOPOROSIS. COMMENT: The World Health Organization defines low BMD as follows: T-score: Normal: Greater than -1.0 Osteopenia: Between -1.0 and -2.5 Osteoporosis: Less than -2.5 without fractures Established osteoporosis: Less than -2.5 with fractures In general, you may wish to consider: Diagnosis Treatment Follow-up DEXA Normal BMD Prevention 2-3 years Osteopenia Prevention/Therapy 1-2 years Osteoporosis Therapy Yearly TECHNICAL DOCUMENTATION: JOB ID: [id number] [employer]- All Rights Reserved Reading location - IP/workstation name: [email or web address]
== END ==
LOC: WI 12:37
PROVIDERS: ATTEND Family Medicine
DX: M81.0 Age-related osteoporosis without current pathological fracture (principal); Z78.0 Asymptomatic menopausal state
CPT/HCPCS: 77080

== ENCOUNTER → 2018-09-24 | Outpatient (CLI) | payer MEDICARE, MEDICAID ==
[2018-09-24 18:10] LABS: URINE AMPHETAMINES SCREEN NEGATIVE; URINE BARBITURATES SCREEN NEGATIVE; URINE BENZODIAZEPINES SCREEN NEGATIVE; URINE COCAINE SCREEN NEGATIVE; URINE MARIJUANA (THC) SCREEN NEGATIVE; URINE METHADONE SCREEN NEGATIVE; URINE PHENCYCLIDINE SCREEN NEGATIVE
== END ==
LOC: OD 16:24
PROVIDERS: ATTEND Family Medicine
DX: G89.4 Chronic pain syndrome (principal)
CPT/HCPCS: 80307

== ENCOUNTER 2018-10-25 18:29 | Emergency (ER) | payer MEDICAID, MEDICARE ==
--- NOTE | 2018-10-25 19:02 | ER Document Report ---
ED Medical Screen (RME) - General Chief Complaint: Chest Pain Stated Complaint: CHEST PAIN Time Seen by Provider: 10/25/18 18:58 Primary Care Provider: RAMONE CRAWFORD MD [Primary Care Provider] - Follow up as needed Mode of Arrival: Ambulatory Information source: Patient TRAVEL OUTSIDE OF THE [place] IN LAST 30 DAYS: No - HPI Patient complains to provider of: neck, CP Onset: This morning - pt . with onset of neck pain for the past 1-2 days with onset of CP earlier today. Has taken ASA today - Related Data Allergies/Adverse Reactions: propoxyphene HCl [From Darvon] Adverse Reaction (Verified 10/25/18 18:31) Confusion Bee Stings Allergy (Uncoded 10/25/18 18:31) Past Medical History - Past Medical History Cardiac Medical History: Reports: Hx Hypercholesterolemia, Hx Hypertension Denies: Hx Coronary Artery Disease, Hx Heart Attack Pulmonary Medical History: Reports: Hx Pneumonia Denies: Hx Asthma, Hx Bronchitis, Hx COPD Neurological Medical History: Denies: Hx Cerebrovascular Accident, Hx Seizures Renal/ Medical History: Reports: Hx Kidney Stones - Seen on CT scan in the past. Denies: Hx Peritoneal Dialysis GI Medical History: Reports: Hx Gastroesophageal Reflux Disease, Hx Hiatal Hernia Musculoskeltal Medical History: Reports Hx Arthritis - all over Psychiatric Medical History: Reports: Hx Depression Past Surgical History: Reports: Hx Bowel Surgery - A gastric stent to repair hiatal hernia, Hx Gynecologic Surgery - BTL, Hx Tubal Ligation. Denies: Hx Hysterectomy, Hx Pacemaker - Immunizations Hx Diphtheria, Pertussis, Tetanus Vaccination: Yes Physical Exam - Vital signs Vitals: Temp Pulse Resp BP Pulse Ox 98.2 F 85 16 196/76 H 100 10/25/18 18:43 10/25/18 18:43 10/25/18 18:43 10/25/18 18:43 10/25/18 18:43 Course - Vital Signs Vital signs: Temp Pulse Resp BP Pulse Ox 98.2 F 85 16 196/76 H 100 10/25/18 18:43 10/25/18 18:43 10/25/18 18:43 10/25/18 18:43 10/25/18 18:43 Doctor's Discharge - Discharge Referrals: RAMONE CRAWFORD MD [Primary Care Provider] - Follow up as needed
[2018-10-25 20:05] LABS: ABSOLUTE BASOPHILS # (AUTO) 0.1 10^3/uL (0.0-0.2); ABSOLUTE EOSINOPHILS # (AUTO) 0.1 10^3/uL (0.0-0.6); ABSOLUTE LYMPHOCYTES (AUTO) 2.6 10^3/uL (0.5-4.7); ABSOLUTE MONOCYTES (AUTO) 0.4 10^3/uL (0.1-1.4); BASOPHILS % (AUTO) 0.7 % (0-2); EOSINOPHILS % (AUTO) 0.9 % (0-6); HEMATOCRIT 41.2 % (36.0-47.0); HEMOGLOBIN 14.2 g/dL (12.0-15.5); MEAN CORPUSCULAR HGB CONC 34.4 g/dL (32.0-36.0); MEAN CORPUSCULAR VOLUME 93 fl (80-97); MONOCYTES % (AUTO) 4.8 % (3-13); PLATELET COUNT 228 10^3/uL (150-450); RED BLOOD COUNT 4.42 10^6/uL (3.72-5.28); RED CELL DISTRIBUTION WIDTH 13.6 % (11.5-14.0); SEGMENTED NEUTROPHILS % (AUTO) 65.6 % (42-78); TOTAL CELLS COUNTED % (AUTO) 100 %; WHITE BLOOD COUNT 9.2 10^3/uL (4.0-10.5)
--- NOTE | 2018-10-25 20:10 | EKG REPORT ---
SEVERITY:- NORMAL ECG - SINUS RHYTHM : Confirmed by: Angelica Burgos MD 25-Oct-2018 20:10:01
[2018-10-25 20:27] LABS: CREATINE KINASE MB 0.83 ng/mL (<4.55)
[2018-10-25 20:28] LABS: TROPONIN I < 0.012 ng/mL
--- NOTE | 2018-10-25 21:01 | RADIOLOGY REPORT (SQ) ---
EXAM DESCRIPTION: XR CHEST 2 VIEWS COMPLETED DATE/TME: 10/25/2018 19:00 CLINICAL HISTORY: 77 years, Female, cp COMPARISON: 08/04/2016. NUMBER OF VIEWS: 2 TECHNIQUE: Two-view, PA and lateral projections of the chest were obtained. LIMITATIONS: None. FINDINGS: Unremarkable cardiac and mediastinal silhouette. Heart size is normal. Atherosclerotic thoracic aorta. Lungs are clear without focal opacity, pneumothorax or pleural effusions. The visualized bones are within normal limits. IMPRESSION: No acute cardiopulmonary abnormalities. copyright 2010 [employer].- All Rights Reserved
--- NOTE | 2018-10-25 21:04 | RADIOLOGY REPORT (SQ) ---
EXAM DESCRIPTION: XR SPINE 1 VIEW COMPLETED DATE/TME: 10/25/2018 19:00 CLINICAL HISTORY: 77 years, Female, neck pain COMPARISON: None. NUMBER OF VIEWS: 4 TECHNIQUE: Four views of the cervical spine were obtained in AP, lateral, and odontoid projections. LIMITATIONS: None. FINDINGS: The cervical spine is visualized to the top of C7. Alignment of the cervical spine is within normal limits. There is no subluxation or fracture deformity. Morphology of the vertebral bodies and intervertebral disc spaces is compatible with multilevel degenerative change. Loss of disk height present at C3-4 and C4-5. The prevertebral soft tissues are within normal limits. The airway is patent. Limited visualization of the lung apices is within normal limits. The remainder of the visualized bones are within normal limits. Dense atherosclerotic calcification of the bilateral carotid arteries. IMPRESSION: No acute radiographic abnormality. If patient's pain persists, repeat radiographs in 7 to 10 days or MRI cervical spine may be considered as clinically indicated. copyright 2010 [employer]- All Rights Reserved
[2018-10-25 21:18] LABS: ALANINE AMINOTRANSFERASE 15 U/L (9-52); ALBUMIN 4.3 g/dL (3.5-5.0); ALKALINE PHOSPHATASE 63 U/L (38-126); ANION GAP 9 (5-19); ASPARTATE AMINO TRANSFERASE 20 U/L (14-36); BILIRUBIN,DIRECT 0.3 mg/dL (0.0-0.4); BILIRUBIN,TOTAL 0.6 mg/dL (0.2-1.3); BLOOD UREA NITROGEN 18 mg/dL (7-20); CALCIUM 10.1 mg/dL (8.4-10.2); CARBON DIOXIDE 22 mmol/L (22-30); CHLORIDE 109 mmol/L (98-107); CREATINE KINASE 64 U/L (30-135); GLUCOSE 111 mg/dL (75-110); POTASSIUM 3.9 mmol/L (3.6-5.0); SODIUM 140.4 mmol/L (137-145); TOTAL PROTEIN 7.2 g/dL (6.3-8.2)
[2018-10-25] MEDS ORDERED: METOPROLOL SUCCINATE 25 MG TAB.SR.24H PO ONE (21:24)
[2018-10-25] MEDS ORDERED: METOPROLOL TARTRATE 25 MG TABLET PO ONE (21:24)
--- NOTE | 2018-10-25 22:23 | RADIOLOGY REPORT (SQ) ---
XR ABDOMEN 2 VIEWS SUPINE ERECT HISTORY: LUQ abd pain. COMPARISON: None. FINDINGS: There is a nonobstructive bowel gas pattern. No intraperitoneal free air or air-fluid levels are visualized on the upright view. No abnormal soft tissue calcifications are seen. The lung bases are clear. There are no acute bony findings. IMPRESSION: Nonobstructive bowel gas pattern.
--- NOTE | 2018-10-25 22:32 | ER Document Report ---
Entered by LEBRON MONGE SCRIBE 10/25/[id number] Acting as scribe for:MARIBELL HAIRSTON DO ED General - General Chief Complaint: Chest Pain Stated Complaint: CHEST PAIN Time Seen by Provider: 10/25/18 18:58 Primary Care Provider: RAMONE CRAWFORD MD [Primary Care Provider] - Follow up as needed Mode of Arrival: Ambulatory Information source: Patient Notes: 77 year old male that presents to the emergency department today with complaints of neck pain for x1 week. Patient states that she thinks she may have slept on it wrong which started her neck pain. Patient denies any change in her pain with movement of the neck, stating that it "hurts the same all the time". Patient denies any trauma to her neck. Patient denies any numbness, tingling, or in continence. Patient also mentions she has been having a sharp intermittent left upper abdomen/chest pain since morning. Patient states this began this morning after waking up, before eating anything. Patient is unable to associate this pain starting and stopping with anything. Comes and goes every few minutes. TRAVEL OUTSIDE OF THE [place] IN LAST 30 DAYS: No - Related Data Allergies/Adverse Reactions: propoxyphene HCl [From Darvon] Adverse Reaction (Verified 10/25/18 18:31) Confusion Bee Stings Allergy (Uncoded 10/25/18 18:31) Past Medical History - General Information source: Patient - Social History Smoking Status: Never Smoker Cigarette use (# per day): No Frequency of alcohol use: None Lives with: Alone Family History: None, Reviewed & Not Pertinent Patient has suicidal ideation: No Patient has homicidal ideation: No - Past Medical History Cardiac Medical History: Reports: Hx Hypercholesterolemia, Hx Hypertension Pulmonary Medical History: Reports: Hx Pneumonia Renal/ Medical History: Reports: Hx Kidney Stones - Seen on CT scan in the past GI Medical History: Reports: Hx Gastroesophageal Reflux Disease, Hx Hiatal Hernia Musculoskeletal Medical History: Reports Hx Arthritis - all over Psychiatric Medical History: Reports: Hx Depression Past Surgical History: Reports: Hx Bowel Surgery - A gastric stent to repair hiatal hernia, Hx Gynecologic Surgery - BTL, Hx Tubal Ligation - Immunizations Hx Diphtheria, Pertussis, Tetanus Vaccination: Yes Hx Pneumococcal Vaccination: 01/31/15 Review of Systems - Review of Systems Constitutional: No symptoms reported EENT: No symptoms reported Cardiovascular: See HPI, Chest pain Respiratory: No symptoms reported Gastrointestinal: See HPI, Abdominal pain Genitourinary: No symptoms reported Female Genitourinary: No symptoms reported Musculoskeletal: See HPI, Neck pain Skin: No symptoms reported Hematologic/Lymphatic: No symptoms reported Neurological/Psychological: denies: Numbness, Tingling -: Yes All other systems reviewed and negative Physical Exam - Vital signs Vitals: Temp Pulse Resp BP Pulse Ox 98.2 F 85 16 196/76 H 100 10/25/18 18:43 10/25/18 18:43 10/25/18 18:43 10/25/18 18:43 10/25/18 18:43 Interpretation: Hypertensive - Has not yet taken her evening blood pressure medications. - Notes Notes: PHYSICAL EXAM GENERAL: Alert, interacts well. No acute distress. HEAD: Normocephalic, atraumatic. EYES: Pupils equal, round, and reactive to light. Extraocular movements intact. ENT: Oral mucosa moist, tongue midline. NECK: Full range of motion. Supple. Trachea midline. No midline bony tenderness with palpation. Muscle spasm of the cervical portion of the trapezius muscle on the left. No meningismus LUNGS: Clear to auscultation bilaterally, no wheezes, rales, or rhonchi. No respiratory distress. HEART: Regular rate and rhythm. No murmurs, gallops, or rubs. ABDOMEN: Soft, spleen is not enlarged, mild tenderness with palpation over the splenic flexure without any radiation to the epigastric area or left CVA. Non- distended. Bowel sounds present in all 4 quadrants. No guarding, rigidity, or rebound. EXTREMITIES: Moves all 4 extremities spontaneously. No edema, radial and dorsalis pedis pulses 2/4 bilaterally. No cyanosis. Biceps and patellar DTRs 2+ bilaterally, sensation intact. 5 out of 5 muscle strength in all 4 extremities. NEUROLOGICAL: Alert and oriented x3. Normal speech. PSYCH: Normal affect, normal mood. SKIN: Warm, dry, normal turgor. No rashes or lesions noted. Course - Re-evaluation Re-evalutation: 10/25/18 22:28 CBC unremarkable, CMP unremarkable, cardiac enzymes negative, chest x-ray unremarkable, cervical spine x-ray does not show any acute fracture malalignment. Abdominal x-ray does not show any signs of obstruction however there is a moderate to large stool burden. Suspect patient's pain may be coming from solids while moving across the splenic flexure. Patient is given a muscle relaxer for her neck pain which appears to be coming from a left-sided trapezius muscle spasm, encouraged to take MiraLAX for the next 2 weeks and return to the emergency department for any new or concerning symptoms. - Vital Signs Vital signs: Temp Pulse Resp BP Pulse Ox 98.2 F 85 21 H 194/77 H 98 10/25/18 18:43 10/25/18 18:43 10/25/18 21:01 10/25/18 21:01 10/25/18 21:01 - Laboratory Result Diagrams: 10/25/18 19:49 10/25/18 20:56 Laboratory results interpreted by me: 10/25/18 20:56 Chloride 109 H Glucose 111 H - EKG Interpretation by Me Additional EKG results interpreted by me: 10/25/18 22:29 EKG shows sinus rhythm at a rate of 79, normal axis, normal intervals, no ST segment elevations or depressions, T wave flattening in lead III per my interpretation. Discharge - Discharge Clinical Impression: Trapezius muscle spasm, Strain of cervical portion of left trapezius muscle, Abdominal pain, acute, left upper quadrant Condition: Stable Disposition: HOME, SELF-CARE Additional Instructions: Muscle Relaxers Muscle relaxing medications are usually prescribed for acute muscle spasm or injury to the neck and back. They are often combined with antiinflammatory pain medication for increased relief. You may stop the muscle relaxer when the pain and stiffness have improved. Start the medication again if spasms recur. Muscle relaxers may cause drowsiness, especially with the first dose. Do not operate machinery or drive while under the effects of the medication. Most muscle relaxers last up to 24 hours. Do not combine the medication with alcohol. Your neck pain appears to be coming from a muscle spasm on the left side of her neck. Please take the Flexeril as directed. If you develop numbness, tingling, weakness in your hands or your feet please return to the emergency department. If you develop an inability to move your neck please return to the emergency de partment. Please dissolve 1 scoop of MiraLAX in a glass of water once a day to treat constipation. You may increase to twice a day if needed to create soft bowel movements and you may decrease to every other day if you develop diarrhea. Your abdominal x-ray does not show any blockage but it does show a large amount of stool. I suspect some of your pain is coming from the solid stool on the left side of your abdomen. Prescriptions: Cyclobenzaprine HCl [Flexeril 5 mg Tablet] 5 mg PO TID #15 tablet Referrals: RAMONE CRAWFORD MD [Primary Care Provider] - Follow up as needed I personally performed the services described in the documentation, reviewed and edited the documentation which was dictated to the scribe in my presence, and it accurately records my words and actions.
[2018-10-25 22:54] VITALS: BP 180/85
== END 2018-10-25 22:54 | disposition home or self-care (01) ==
LOC: ER 18:29
DX: S29.012A Strain of muscle and tendon of back wall of thorax, initial encounter (principal); X58.XXXA Exposure to other specified factors, initial encounter; M62.830 Muscle spasm of back; M54.2 Cervicalgia; R10.12 Left upper quadrant pain; R07.9 Chest pain, unspecified; I10 Essential (primary) hypertension; Z79.899 Other long term (current) drug therapy; Z91.030 Bee allergy status
CPT/HCPCS: 93005; 99284; 36415; 82553; 82550; 85025; 80053; 84484; 74019; 72040; 71046; 93010; A9270

== ENCOUNTER → 2019-06-03 | Outpatient (CLI) | payer BC, MEDICARE ==
--- NOTE | 2019-06-03 16:03 | WOMENS IMAGING REPORT ---
EXAM DESCRIPTION: 3D SCREENING MAMMO BILAT COMPLETED DATE/TIME: 06/03/2019 3:45 pm REASON FOR STUDY: Z12.31 SCREENING MAMMO Z12.31 ENCNTR SCREEN MAMMOGRAM FOR MALIGNANT NEOPLASM OF B RE COMPARISON: [id number] EXAM PARAMETERS: Views: Standard craniocaudal and mediolateral oblique views of each breast recorded using digital acquisition and breast tomosynthesis. Read with the assistance of CAD. .[facility] - R2 Fleet Administrator Version 9.2 LIMITATIONS: None. FINDINGS: No suspicious masses, suspicious calcifications or architectural distortion. No areas of c oncern. IMPRESSION: NEGATIVE MAMMOGRAM. BIRADS 1. BREAST DENSITY: a. The breasts are almost entirely fatty. BIRAD: ASSESSMENT: 1 NEGATIVE RECOMMENDATION: ROUTINE SCREENING COMMENT: The patient has been notified of the results by letter per MQSA requirements. Additional no tification policies are in place for contacting patient with suspicious or incomplete findings. Quality ID #225: The [employer] recommends an annual screening mammogram for women aged 40 years or over. This facility utilizes a reminder system to ensure that all patients receive reminder letters, and/or direct phone calls for appointments. This includes reminders for routine scr eening mammograms, diagnostic mammograms, or other Breast Imaging Interventions when appropriate. Th is patient will be placed in the appropriate reminder system. TECHNICAL DOCUMENTATION: FINDING NUMBER: (1) ASSESSMENT: (1) JOB ID: [id number] [employer]- All Rights Reserved Reading location - IP/workstation name: [email or web address]
== END ==
LOC: WI 15:00
PROVIDERS: ATTEND Family Medicine
DX: Z12.31 Encounter for screening mammogram for malignant neoplasm of breast (principal)
CPT/HCPCS: 77063; 77067

== ENCOUNTER 2019-07-24 00:43 | Emergency (ER) | payer BC, MEDICARE ==
[2019-07-24] MEDS ORDERED: ACETAMINOPHEN 325 MG TABLET PO ONE (08:39)
[2019-07-24] MEDS ORDERED: ASPIRIN 81 MG TABLET, CHEWABLE PO ONE (08:39)
--- NOTE | 2019-07-24 08:44 | ER Document Report ---
ED General - General Chief Complaint: Headache Stated Complaint: CHEST PAINS HEAD ACHE Time Seen by Provider: 07/24/19 08:22 Primary Care Provider: RAMONE CRAWFORD MD [Primary Care Provider] - Follow up as needed TRAVEL OUTSIDE OF THE [place] IN LAST 30 DAYS: No - HPI Notes: Patient is a 78-year-old female with a known history of hypertension who presents to the emergency department for evaluation. Her sister last night, here in the hospital. Following this, the patient developed chest pain and a headache. She states that her blood pressure was elevated. All of these things happen to her semi-regularly, when she is stressed. She describes it as a heaviness. She states that normally she would take her metoprolol and some aspirin at home, and rest. Today, she signed to the emergency department. She states her chest pain has resolved but she does have a headache. Again she states that this is not abnormal under stressful situations. - Related Data Allergies/Adverse Reactions: propoxyphene HCl [From Darvon] Adverse Reaction (Verified 10/25/18 18:31) Confusion Bee Stings Allergy (Uncoded 10/25/18 18:31) Home Medications: metoprolol, pravastatin, vicodin, percocet, lorazepam Past Medical History - General Information source: Patient - Social History Smoking Status: Former Smoker Chew tobacco use (# tins/day): No Frequency of alcohol use: None Drug Abuse: None Family History: None, Reviewed & Not Pertinent Patient has suicidal ideation: No Patient has homicidal ideation: No - Past Medical History Cardiac Medical History: Reports: Hx Hypercholesterolemia, Hx Hypertension Denies: Hx Coronary Artery Disease, Hx Heart Attack Pulmonary Medical History: Reports: Hx Pneumonia Denies: Hx Asthma, Hx Bronchitis, Hx COPD Neurological Medical History: Denies: Hx Cerebrovascular Accident, Hx Seizures Renal/ Medical History: Reports: Hx Kidney Stones - Seen on CT scan in the past. Denies: Hx Peritoneal Dialysis GI Medical History: Reports: Hx Gastroesophageal Reflux Disease, Hx Hiatal Hernia, Hx Ulcer Musculoskeletal Medical History: Reports Hx Arthritis - all over Psychiatric Medical History: Reports: Hx Depression Past Surgical History: Reports: Hx Bowel Surgery - A gastric stent to repair hiatal hernia, Hx Gynecologic Surgery - BTL, Hx Tubal Ligation. Denies: Hx Hysterectomy, Hx Pacemaker - Immunizations Hx Diphtheria, Pertussis, Tetanus Vaccination: Yes Hx Pneumococcal Vaccination: 07/07/15 Review of Systems - Review of Systems Constitutional: No symptoms reported EENT: No symptoms reported Cardiovascular: See HPI Respiratory: No symptoms reported Gastrointestinal: No symptoms reported Genitourinary: No symptoms reported Musculoskeletal: No symptoms reported Skin: No symptoms reported Neurological/Psychological: See HPI Physical Exam - Vital signs Vitals: Temp Pulse Resp BP Pulse Ox 97.6 F 96 22 H 133/68 H 98 07/24/19 01:06 07/24/19 01:06 07/24/19 01:06 07/24/19 01:06 07/24/19 01:06 - Notes Notes: Vital signs reviewed, please refer to chart. Head is normocephalic, atraumatic. Pupils equal round, reactive to light. Neck is supple without meningismus. Heart is regular rate and rhythm. Lungs are clear to auscultation bilaterally. Abdomen is soft, nontender, normoactive bowel sounds throughout. Extremities without cyanosis, clubbing. Posterior calves are nontender. Peripheral pulses are equal. Skin is warm and dry. Patient is awake, alert, neurological exam is nonfocal. Course - Re-evaluation Re-evalutation: 07/24/19 08:41 Patient presents to the emergency department for evaluation. Her blood pressure is mildly elevated, but she does have a history of hypertension. She took her metoprolol. Her blood pressure improved. Patient states this is all typical for her. She does have risk factors, but certainly at the loss of a sister, it is not unexpected to have a grief/stress reaction, especially when these are similar to reaction she has had in the past. The patient is feeling somewhat improved, is given aspirin and Tylenol, she states these things have helped in the past. Her EKG does not show any signs of ST elevation. The patient is overall improved. I will have her follow-up with her primary care provider next week, return to the ED with worsening. - Vital Signs Vital signs: Temp Pulse Resp BP Pulse Ox 97.6 F 96 13 150/91 H 100 07/24/19 01:06 07/24/19 01:06 07/24/19 05:33 07/24/19 05:33 07/24/19 05:33 - EKG Interpretation by Me Additional EKG results interpreted by me: 07/24/19 08:42 Sinus tachycardia with rate of 102 bpm. Normal axis and intervals, no acute ST changes concerning for ischemia or infarction. Discharge - Discharge Clinical Impression: Headache, Grief reaction Condition: Stable Disposition: HOME, SELF-CARE Instructions: Grief Reaction ([facility]), Headache ([facility]), High Blood Pressure, Requiring Treatment ([facility]) Additional Instructions: Rest. Continue your home medications as prescribed. Follow-up with your primary care doctor next week. Return to the emergency department with worsening or new concerning symptoms of any sort. Referrals: RAMONE CRAWFORD MD [Primary Care Provider] - Follow up as needed
[2019-07-24 09:00] VITALS: BP 172/82
--- NOTE | 2019-07-24 13:44 | EKG REPORT ---
SEVERITY:- OTHERWISE NORMAL ECG - SINUS TACHYCARDIA : Confirmed by: Angelica Burgos MD 24-Jul-2019 13:43:56
== END 2019-07-24 09:00 | disposition home or self-care (01) ==
LOC: ER 00:43
DX: R51 Headache (principal); F43.20 Adjustment disorder, unspecified; R07.9 Chest pain, unspecified; Z79.899 Other long term (current) drug therapy; Z87.891 Personal history of nicotine dependence; I10 Essential (primary) hypertension
CPT/HCPCS: 93005; 93010; 99284

== ENCOUNTER → 2020-02-22 | Outpatient (CLI) | payer BC, MEDICARE ==
[2020-02-22 11:50] LABS: ABSOLUTE EOSINOPHILS # (AUTO) 0.1 10^3/uL (0.0-0.6); ABSOLUTE LYMPHOCYTES (AUTO) 1.9 10^3/uL (0.5-4.7); ABSOLUTE MONOCYTES (AUTO) 0.5 10^3/uL (0.1-1.4); ABSOLUTE NEUT (AUTO) 3.2 10^3/uL (1.7-8.2); BASOPHILS % (AUTO) 0.3 % (0-2); EOSINOPHILS % (AUTO) 2.6 % (0-6); HEMATOCRIT 38.1 % (36.0-47.0); HEMOGLOBIN 12.9 g/dL (12.0-15.5); LYMPHOCYTES % (AUTO) 32.9 % (13-45); MEAN CORPUSCULAR HEMOGLOBIN 31.9 pg (27.0-33.4); MEAN CORPUSCULAR HGB CONC 33.8 g/dL (32.0-36.0); MEAN CORPUSCULAR VOLUME 94 fl (80-97); PLATELET COUNT 210 10^3/uL (150-450); RED BLOOD COUNT 4.04 10^6/uL (3.72-5.28); RED CELL DISTRIBUTION WIDTH 13.5 % (11.5-14.0); SEGMENTED NEUTROPHILS % (AUTO) 56.2 % (42-78); TOTAL CELLS COUNTED % (AUTO) 100 %; WHITE BLOOD COUNT 5.6 10^3/uL (4.0-10.5)
[2020-02-22 12:08] LABS: ALBUMIN 4.2 g/dL (3.5-5.0); ALKALINE PHOSPHATASE 55 U/L (38-126); ANION GAP 6 (5-19); ASPARTATE AMINO TRANSFERASE 24 U/L (14-36); BILIRUBIN,TOTAL 0.7 mg/dL (0.2-1.3); BLOOD UREA NITROGEN 17 mg/dL (7-20); CALCIUM 9.3 mg/dL (8.4-10.2); CARBON DIOXIDE 26 mmol/L (22-30); CHLORIDE 106 mmol/L (98-107); CHOLESTEROL 147.41 mg/dL (0-200); GLUCOSE 134 mg/dL (75-110); POTASSIUM 4.4 mmol/L (3.6-5.0); TRIGLYCERIDES 142 mg/dL (<150)
[2020-02-22 12:18] LABS: DIRECT LDL 62 mg/dL (<100)
== END ==
LOC: OD 11:04
PROVIDERS: ATTEND Family Medicine
DX: R73.9 Hyperglycemia, unspecified (principal); E78.5 Hyperlipidemia, unspecified; E55.9 Vitamin D deficiency, unspecified; Z79.899 Other long term (current) drug therapy
CPT/HCPCS: 36415; 80053; 80061; 82306; 83036; 84443; 85025

== ENCOUNTER → 2020-06-06 | Outpatient (CLI) | payer BC, MEDICARE ==
--- NOTE | 2020-06-06 11:14 | WOMENS IMAGING REPORT ---
EXAM DESCRIPTION: 3D SCREENING MAMMO BILAT IMAGES COMPLETED DATE/TIME: 06/06/2020 9:32 am REASON FOR STUDY: Z12.31 ENCOUNTER FOR SCREENING MAMMOGRAM FOR MALIGNANT NEOPLASM OF BREAST Z12.31 ENCNTR SCREEN MAMMOGRAM FOR MALIGNANT NEOPLASM OF ROMIE Z78.0 ASYMPTOMATIC MENOPAUSAL STATE COMPARISON: Priors back to 2016 EXAM PARAMETERS: Views: Standard craniocaudal and mediolateral oblique views of each breast recorded using digital acquisition and breast tomosynthesis. Read with the assistance of CAD. .[facility] - R2 Receiver St[employer] Version 9.2 LIMITATIONS: None. FINDINGS: No suspicious masses, suspicious calcifications or architectural distortion. No areas of c oncern. IMPRESSION: NEGATIVE MAMMOGRAM. BIRADS 1. BREAST DENSITY: b. There are scattered areas of fibroglandular density. BIRAD: ASSESSMENT: 1 NEGATIVE RECOMMENDATION: ROUTINE SCREENING COMMENT: The patient has been notified of the results by letter per MQSA requirements. Additional no tification policies are in place for contacting patient with suspicious or incomplete findings. Quality ID #225: The [employer] recommends an annual screening mammogram for women aged 40 years or over. This facility utilizes a reminder system to ensure that all patients receive reminder letters, and/or direct phone calls for appointments. This includes reminders for routine scr eening mammograms, diagnostic mammograms, or other Breast Imaging Interventions when appropriate. Th is patient will be placed in the appropriate reminder system. TECHNICAL DOCUMENTATION: FINDING NUMBER: (1) ASSESSMENT: (1) JOB ID: [id number] 2010 [employer] All Rights Reserved Reading location - IP/workstation name: [email or web address]
--- NOTE | 2020-06-06 12:19 | WOMENS IMAGING REPORT ---
EXAM DESCRIPTION: BONE DENSITY HIP/SPINE IMAGES COMPLETED DATE/TIME: 06/06/2020 9:11 am REASON FOR STUDY: Z78.0 ASYMPTOMATIC MENOPAUSAL STATE Z12.31 ENCNTR SCREEN MAMMOGRAM FOR MALIGNANT NEOPLASM OF ROMIE Z78.0 ASYMPTOMATIC MENOPAUSAL STATE COMPARISON: 6 studies dating back to 2006 TECHNIQUE: Dual-Energy X-ray Absorptiometry (DEXA) of the AP Spine and Hip. LIMITATIONS: None. FINDINGS: LUMBAR SPINE: The bone mineral density (BMD) measured from L1-L4 in the AP projection correlates with a T-score of -2.7, which is osteoporosis as defined by the World Health Organization. BMD Change vs Baseline: +0.7% HIP: The bone mineral density (BMD) measured in the left hip correlates with a T-score of -2.5 in the femo ral neck, which is osteoporosis as defined by the World Health Organization. BMD Change vs Baseline: -10% 10 year Fracture Risk Assessment: Major Osteoporotic Fracture: Not available. Hip Fracture: Not available. IMPRESSION: 1. LUMBAR SPINE WHO CLASSIFICATION: OSTEOPOROSIS. 2. HIP WHO CLASSIFICATION: OSTEOPOROSIS. OVERALL ASSESSMENT: WHO CLASSIFICATION: OSTEOPOROSIS. COMMENT: The World Health Organization defines low BMD as follows: T-score: Normal: At or above -1.0 Osteopenia: Between -1.0 and -2.5 Osteoporosis: At or below -2.5 without fractures Established osteoporosis: At or below -2.5 with fractures In general, you may wish to consider: Diagnosis Treatment Follow-up DEXA Normal BMD Prevention 2-3 years Osteopenia Prevention/Therapy 1-2 years Osteoporosis Therapy Yearly TECHNICAL DOCUMENTATION: JOB ID: [id number] 2010 [employer]- All Rights Reserved Reading location - IP/workstation name: [email or web address]
== END ==
LOC: WI 08:46
PROVIDERS: ATTEND Family Medicine
DX: Z12.31 Encounter for screening mammogram for malignant neoplasm of breast (principal); Z78.0 Asymptomatic menopausal state; M81.8 Other osteoporosis without current pathological fracture
CPT/HCPCS: 77063; 77067; 77080

== ENCOUNTER → 2020-08-17 | Outpatient (CLI) | payer BC, MEDICARE ==
--- OUTSIDE RECORDS SUMMARY | 2020-08-17 08:34 | XMS REPORT ---
:1940 Author Organization [facility] Address [facility] [place] [address] [place] [address] Care Team Providers Name Role Phone YVETTE Primary Care Physician Unavailable Allergies, Adverse Reactions, Alerts This patient has no known allergies or adverse reactions. Medications This patient has no known medications. Problems Condition Condition Condition Status Onset Resolution Last Treatin g Comments Name Details Category Date Date Treatment Clinician Date Inflammatio Inflammatio Problem Active n of n of - rotator Rotator 00:00: cuff tendon Cuff Tendon 00 Procedures Procedure Date / Time Performed Performing Clinician Stephy ROSENTHAL, shoulder 2020-02-23 00:00:00 Results This patient has no known results. Assessments Condition Name Status Diagnosis Date Treating Clinici an Inflammation of rotator cuff tendon Active 2020-02-23 1 0:51:25 Shoulder pain Active 2020-02-23 10:10:31 Encounters Start End Encounter Admission Attending Care Care Encounter Date/Time Date/Time Type Type Clinicians Facility Department ID 2020-02-23 2020-02-23 Gustavo Esquivel [facility] 9 [id number] 00:00:00 00:00:00 johnie Chiang [facility] [id number] MD: [address] [place] [phone], Ph. Social History Smoking Status Start Date Stop Date Unknown If Ever Smoked Vital Signs This patient has no known vital signs. Hospital Discharge Instructions 1. Inflammation of rotator cuff tendon prednisone 10 mg tablets in a dose pack 2. Shoulder pain shoulder pain: care instructions XR, shoulder rotator cuff: exercises Discussion Note: None recorded.
[2020-08-17 09:54] LABS: ABSOLUTE EOSINOPHILS # (AUTO) 0.2 10^3/uL (0.0-0.6); ABSOLUTE LYMPHOCYTES (AUTO) 1.7 10^3/uL (0.5-4.7); ABSOLUTE MONOCYTES (AUTO) 0.5 10^3/uL (0.1-1.4); ABSOLUTE NEUT (AUTO) 6.1 10^3/uL (1.7-8.2); BASOPHILS % (AUTO) 0.6 % (0-2); EOSINOPHILS % (AUTO) 2.3 % (0-6); HEMATOCRIT 37.8 % (36.0-47.0); HEMOGLOBIN 12.6 g/dL (12.0-15.5); LYMPHOCYTES % (AUTO) 19.7 % (13-45); MEAN CORPUSCULAR HEMOGLOBIN 30.7 pg (27.0-33.4); MEAN CORPUSCULAR HGB CONC 33.2 g/dL (32.0-36.0); MEAN CORPUSCULAR VOLUME 92 fl (80-97); MONOCYTES % (AUTO) 6.4 % (3-13); PLATELET COUNT 210 10^3/uL (150-450); RED CELL DISTRIBUTION WIDTH 13.3 % (11.5-14.0); TOTAL CELLS COUNTED % (AUTO) 100 %; WHITE BLOOD COUNT 8.6 10^3/uL (4.0-10.5)
[2020-08-17 10:22] LABS: ALBUMIN 4.1 g/dL (3.5-5.0); ALKALINE PHOSPHATASE 71 U/L (38-126); ANION GAP 7 (5-19); ASPARTATE AMINO TRANSFERASE 22 U/L (14-36); BILIRUBIN,DIRECT 0.2 mg/dL (0.0-0.4); BILIRUBIN,TOTAL 0.8 mg/dL (0.2-1.3); BLOOD UREA NITROGEN 18 mg/dL (7-20); CALCIUM 9.4 mg/dL (8.4-10.2); CARBON DIOXIDE 26 mmol/L (22-30); CHLORIDE 104 mmol/L (98-107); CHOLESTEROL 133.73 mg/dL (0-200); GLUCOSE 136 mg/dL (75-110); POTASSIUM 4.2 mmol/L (3.6-5.0); TOTAL PROTEIN 6.8 g/dL (6.3-8.2); TRIGLYCERIDES 119 mg/dL (<150)
[2020-08-17 10:33] LABS: DIRECT LDL 50 mg/dL (<100)
== END ==
LOC: OD 08:29
PROVIDERS: ATTEND Family Medicine
DX: E78.5 Hyperlipidemia, unspecified (principal); Z79.899 Other long term (current) drug therapy; R73.9 Hyperglycemia, unspecified; E55.9 Vitamin D deficiency, unspecified
CPT/HCPCS: 36415; 80053; 80061; 82306; 83036; 84443; 85025